=== PATIENT | female | born 1945 | race Caucasian/White ===

== ENCOUNTER → 2017-08-01 11:52 | Outpatient (CLI) | payer MEDICARE, MEDICAID, SELFPAY ==
--- NOTE | 2017-08-01 12:13 | RAD_ITS ---
STUDY: X-RAY - LUMBAR SPINE REASON FOR EXAM: Female, 71 years old. TECHNIQUE: 3 view(s) of the lumbar spine were obtained. COMPARISON: None FINDINGS: There is a 40 degree thoracic scoliosis with convexity to the right with a compensatory thoracolumbar scoliosis with convexity to the left.. There are degenerative changes involving the lower thoracic spine. The aorta and iliac vessels are heavily calcified in its roberts. 2. Bilateral infiltrates are seen projecting over the lower lumbosacral spine. RAD/Lumbar Spine 2 or 3 Views IMPRESSION: 840 degree thoracic scoliosis with convexity to the right with compensatory thoracolumbar scoliosis with convexity to the left. Mild multilevel intervertebral osteochondrosis. No fracture Electronically Signed: Tan Song, at 1:36 EST Tel , Service support ,
[2017-08-01 14:12] LABS: Amphetamine Urine VISTA NEGATIVE (<1000 ng/mL); Barbiturate Urine VISTA NEGATIVE (< 200 ng/mL); Benzodiazepine Urine VISTA NEGATIVE (< 200 ng/mL); Cocaine Urine VISTA NEGATIVE (< 300 ng/mL); Ecstacy Urine VISTA NEGATIVE (< 500 ng/mL); Methadone Urine VISTA NEGATIVE (< 300 ng/mL); PCP Urine VISTA NEGATIVE (< 25 ng/mL); THC Urine VISTA NEGATIVE (< 50 ng/mL); Vista UDS pH Range 5
== END ==
PROVIDERS: Family Provider Family Medicine; PCP Internal Medicine; Visit Provider Anesthesiology Pain Medicine
DX: F11.20 Opioid dependence, uncomplicated (principal)
CPT/HCPCS: 72100; 80307

== ENCOUNTER → 2017-08-10 10:52 | Outpatient (CLI) | payer MEDICARE, MEDICAID, SELFPAY ==
--- NOTE | 2017-08-10 11:02 | MRI_ITS ---
STUDY: MRI LUMBAR SPINE WITHOUT CONTRAST REASON FOR EXAM: Female, 71 years old. back pain, hx scoliosis. TECHNIQUE: Standardized fat and water weighted pulse sequences were obtained in the sagittal and axial planes. COMPARISON: None FINDINGS: T12-L1: There is moderate disc space narrowing and endplate spondylosis. There is mild disc bulge and facet neuropathy without significant central canal or foraminal stenosis. There is moderate levoscoliosis centered at L1/L2. There are lateral translations at L3/L4 and L4/L5. Normal conus medullaris that terminates at the L1 L1-2: There is severe disc space narrowing and endplate spondylosis asymmetric to the right. There is a mild disc infarct complex asymmetric to the right. There is facet arthropathy there is no significant central canal or foraminal stenosis. L2-3: There is severe disc space narrowing and endplate spondylosis asymmetric to the right. There is some moderate disc osteophyte complex asymmetric to the right with moderate right foraminal stenosis. There is no significant central canal or left foraminal stenosis. L3-4: There is moderate disc space narrowing and endplate spondylosis asymmetric to the right. There is mild disc osteophyte complex asymmetric to the right without significant central canal or foraminal stenosis. There is moderate facet arthropathy L4-5: There is mild disc space narrowing and endplate spondylosis. There is a minimal disc bulge without significant central canal or foraminal stenosis. There is facet arthropathy greater on the left. L5-S1: There is severe disc space narrowing and endplate spondylosis asymmetric to the left. There is a disc osteophyte complex asymmetric to the left with moderate left foraminal stenosis. There is no significant central canal or right foraminal stenosis. There is facet discopathy greater on the left. Normal visualized sacral ala. Normal visualized paraspinous soft tissue structures. MRI/Spine Lumbar (Routine) IMPRESSION: Moderate/severe Scoliosis and multilevel degenerative changes. L2/L3: Moderate right foraminal stenosis. L5/S1: Moderate left foraminal stenosis. Electronically Signed: Samer Salhab, MD at 9:41 EST Tel , Service support ,
== END ==
PROVIDERS: Family Provider Internal Medicine; PCP Internal Medicine; Visit Provider Anesthesiology Pain Medicine
DX: M48.07 Spinal stenosis, lumbosacral region (principal); M51.37 Other intervertebral disc degeneration, lumbosacral region
CPT/HCPCS: 72148

== ENCOUNTER → 2017-08-29 11:56 | Outpatient (CLI) | payer MEDICARE, MEDICAID, SELFPAY ==
--- NOTE | 2017-08-29 12:02 | RAD_ITS ---
STUDY: X-RAY - THORACIC SPINE REASON FOR EXAM: Female, 71 years old. Left flank and back pain TECHNIQUE: 3 view(s) of the thoracic spine were obtained. COMPARISON: None. FINDINGS: Normal kyphosis of the thoracic spine. There is a prominent rotatory scoliosis, dextroscoliosis in the lower lumbar spine, levoscoliosis in the lumbar spine. There is demineralization of the thoracic spine with endplate spondylosis. There is multilevel disc space narrowing of the thoracic spine. The soft tissue structures are unremarkable. RAD/Thoracic Spine 3 Views IMPRESSION: Multilevel degenerative changes with a prominent rotatory scoliosis. Electronically Signed: Andrés Isaac MD at 12:43 EDT , Service support ,
== END ==
PROVIDERS: Family Provider Internal Medicine; PCP Internal Medicine; Visit Provider Anesthesiology Pain Medicine
DX: M41.84 Other forms of scoliosis, thoracic region (principal); M47.894 Other spondylosis, thoracic region
CPT/HCPCS: 72072

== ENCOUNTER → 2017-11-05 10:35 | Outpatient (CLI) | payer MEDICARE, MEDICAID, SELFPAY ==
--- NOTE | 2017-11-05 10:41 | CT_ITS ---
STUDY: LOW DOSE CT LUNG CANCER SCREENING REASON FOR EXAM: Female, 71 years old. Tobacco use x 53 years. RADIATION DOSAGE (If Supplied By Facility): CTDIvol = ( 2.01 ) mGy, DLP = ( 65.95 ) mGycm TECHNIQUE: No contrast was administered. Low dose technique was utilized (average mAS-38 and kVp 120). 1.25 mm axial source images with a slice interval of 1.25-mm were reconstructed in lung windows. 2.5 mm axial source images with a slice interval of 2.5-mm were reconstructed in lung windows. 5.0 mm axial source images with a slice interval of 5.0-mm were reconstructed in soft tissue windows. Nodule measured using lung windows on PACS and/or independent workstation with automated measurement of minimum and maximum diameter. Nodule measurement reported as average diameter rounded to the nearest whole number. Growth is defined as an increase ins size of greater than 1.5 mm. COMPARISON: None. NODULES: Nodule: Laterally in the left lower lobe a pleural-based 1.8 x 1.1 cm ill-defined nodular density is seen with an elongated fibrotic atelectasis probably a scar tissue although scar neoplasm is not ruled out. No other worrisome lung nodule or mass identified. Emphysema: There is severe emphysema. Linear fibrotic ill-defined parenchymal opacities are seen in the left lower lobe with traction bronchiectasis and with stenting of the left hemidiaphragm. Anteriorly is pleural thickening with a 1.6 cm long scar tissue in the right upper lung lobe. Endobronchial lesion: Aorta: There is atherosclerotic calcification with tortuosity of the aorta. Ascending aorta is ectatic: 3.7 cm in diameter. Coronary arteries: Unremarkable. Heart: Normal in size. Pulmonary artery: Mildly prominent main pulmonary artery, suggestive of pulmonary hypertension. Mediastinal nodes: No significant lymphadenopathy demonstrated. Other chest and abdominal findings: There is calcification of the tracheal and bronchial roberts. There is an elevated left hemidiaphragm with superior extension of the left-sided abdominal viscera into the chest cavity. Increased thoracic kyphosis. Moderate degenerative spondylosis. Severe S-shaped thoracolumbar scoliosis with thoracic dextroscoliosis. CT/Low Dose CT Lung Screening IMPRESSION: Lung-RADS category 3 - Continue screening with LDCT in 6 months. Moderately severe pulmonary emphysema. Bronchiectasis. Linear fibrotic atelectasis and scarring as discussed. IMPORTANT NOTES FOR USE: ACR Lung-RADS Version 1.0 Assessment Categories Release Date: October 01, 2013 Category: Coded 0-4 bases on nodule(s) with highest degree of suspicion. Negative screen is defined as categories 1 and 2; a positive screen is defined as categories 3 and 4. Category 3 and 4A nodules that are unchanged on interval CT should be coded as category 2, and individuals returned to screening in 12 months. Category 4X: Category 3 or 4 nodules with additional imaging findings that increase the suspicion of lung cancer, such as spiculation, GGN that doubles in size in 1 year, enlarged lymph notes, etc. Category Modifiers: S (significant finding unrelated to lung cancer) and C (prior history of treated lung cancer) may be added to the 0-4 Lung-RADS Electronically Signed: Patricia Cortés MD at 10:26 EDT Tel , Service support ,
== END ==
PROVIDERS: Family Provider Internal Medicine; PCP Internal Medicine; Visit Provider Internal Medicine Critical Care Medicine
DX: Z12.2 Encounter for screening for malignant neoplasm of respiratory organs (principal); Z87.891 Personal history of nicotine dependence
CPT/HCPCS: G0297

== ENCOUNTER → 2017-11-11 08:55 | Outpatient (CLI) | payer MEDICARE, MEDICAID, SELFPAY ==
--- NOTE | 2017-11-11 08:55 | DT_ITS ---
This patient was seen during an EMR downtime November 07, 2017 - November 14, 2017. This patient may have a combination of paper and electronic documentation or all paper documentation. All documentation is viewable within the e-chart portion of [facility] for each patient visit.
[2017-11-11 12:12] VITALS: PULSE 104; PULSE 105; PULSE 106; PULSE 107; PULSE 95; PULSE 99; O2SAT 90; O2SAT 92; O2SAT 94; O2SAT 95
--- NOTE | 2017-11-14 12:05 | WT_ITS ---
PSN 6 Minute Walk Test - Interpretation Interpretation: The patient ambulated 826 feet over the course of 6 minutes beginning on room air without assistive devices or breaks. Pretesting oxygen saturation was noted to be 94% on room air. With ambulation, the vic oxygen saturation was 90%. There was evidence of both impaired walk distance and significant exertional oxygen desaturation. - Recommendations Recommendations: There is no indication for the use of supplemental oxygen at this time. However , close interval follow-up is recommended given the degree of oxygen desaturation noted during this study.
--- NOTE | 2017-11-14 12:15 | CPS ---
Testing done by Juana Brooks RRT.
== END ==
PROVIDERS: Family Provider Internal Medicine; PCP Internal Medicine; Visit Provider Internal Medicine Critical Care Medicine
DX: J44.9 Chronic obstructive pulmonary disease, unspecified (principal)
CPT/HCPCS: 94618

== ENCOUNTER → 2017-11-24 07:51 | Outpatient (CLI) | payer MEDICARE, MEDICAID, SELFPAY ==
--- NOTE | 2017-11-24 13:38 | PFT ---
INTRODUCTION: The patient is a 72-year-old female currently under the care of myself the presents for pulmonary function testing secondary to a diagnosis of COPD. Respiratory therapy reports good patient effort. Bronchodilators were used during testing. INTERPRETATION: Forced expiration spirometry demonstrates the presence of a very severe large airways obstructive ventilatory defect. There was a significant response to aerosolized bronchodilators noted, based upon change in FVC. Spirograms of good quality and do not plateau indicating slow emptying of the lungs. The respiratory flow volume loop reveals decreased expiratory flow rates at all lung volumes consistent with airways obstruction. Body plethysmography was performed and reveals an elevated TLC and RV, indicative of underlying hyperinflation and air-trapping. Diffusing capacity by single breath CO is severely reduced at 37% of predicted. IMPRESSION: These pulmonary function studies demonstrate the presence of a partially reversible very severe large airways obstructive ventilatory defect with associated hyperinflation, air trapping and reduction in diffusing capacity. There are no previous pulmonary function studies available for comparison.
== END ==
PROVIDERS: Family Provider Internal Medicine; PCP Internal Medicine; Visit Provider Internal Medicine Critical Care Medicine
DX: J44.9 Chronic obstructive pulmonary disease, unspecified (principal)
CPT/HCPCS: 94060; 94726; 94729

== ENCOUNTER → 2018-01-31 11:51 | Outpatient (CLI) | payer MEDICARE, MEDICAID, SELFPAY | PROVIDERS: Family Provider Internal Medicine; PCP Internal Medicine; Visit Provider Nurse Practitioner Family | DX: M47.892 Other spondylosis, cervical region (principal); M48.02 Spinal stenosis, cervical region | CPT/HCPCS: 72040 ==

== ENCOUNTER → 2018-02-22 13:02 | Outpatient (CLI) | payer MEDICARE, MEDICAID, SELFPAY ==
[2018-02-22 15:23] LABS: Amphetamine Urine VISTA NEGATIVE (<1000 ng/mL); Barbiturate Urine VISTA NEGATIVE (< 200 ng/mL); Benzodiazepine Urine VISTA NEGATIVE (< 200 ng/mL); Cocaine Urine VISTA NEGATIVE (< 300 ng/mL); Ecstacy Urine VISTA NEGATIVE (< 500 ng/mL); Methadone Urine VISTA NEGATIVE (< 300 ng/mL); PCP Urine VISTA NEGATIVE (< 25 ng/mL); THC Urine VISTA NEGATIVE (< 50 ng/mL); Vista UDS pH Range 7
== END ==
PROVIDERS: Family Provider Internal Medicine; PCP Internal Medicine; Visit Provider Anesthesiology Pain Medicine
DX: F11.20 Opioid dependence, uncomplicated (principal)
CPT/HCPCS: 80307

== ENCOUNTER → 2018-03-16 17:14 | Outpatient (CLI) | payer MEDICARE, MEDICAID, SELFPAY ==
--- NOTE | 2018-03-16 17:15 | CT_ITS ---
STUDY: CT CHEST WITHOUT CONTRAST REASON FOR EXAM: Female, 72 years old. Smoker, emphysema RADIATION DOSAGE (If Supplied By Facility): CTDIvol = ( 6.04 ) mGy, DLP = ( 219.01 ) mGycm TECHNIQUE: Transaxial imaging was performed without the administration of intravenous contrast material. Individualized dose optimization techniques were used for this CT. COMPARISON: None. FINDINGS: The lungs are hyperaerated with emphysematous changes. There is no demonstrated pleural abnormality. Normal heart and pericardium. Normal mediastinum. Normal hilar regions. Prominence of the pulmonary arteries. Pulmonary hypertension cannot be excluded. Calcified aorta arch and descending thoracic aorta. Borderline prominence of the ascending aorta and 3.9 cm. Mild degenerative vertebral changes. Moderate scoliosis. IVC filter is noted. 6 mm probable hepatic cyst. CT/Chest without Contrast IMPRESSION: Hyperaeration with emphysematous changes. Prominence of the pulmonary arteries. Pulmonary hypertension cannot be excluded. Moderate scoliosis. Borderline prominence of the ascending aorta. Electronically Signed: Mario Eric DO at 23:56 EDT Tel [phone], Service support ,
== END ==
PROVIDERS: Family Provider Internal Medicine; PCP Internal Medicine; Visit Provider Nurse Practitioner Acute Care
DX: R91.1 Solitary pulmonary nodule (principal)
CPT/HCPCS: 71250

== ENCOUNTER → 2018-07-18 14:38 | Outpatient (CLI) | payer MEDICARE, MEDICAID, SELFPAY ==
[2018-07-18 16:47] LABS: Amphetamine Urine VISTA NEGATIVE (<1000 ng/mL); Barbiturate Urine VISTA NEGATIVE (< 200 ng/mL); Benzodiazepine Urine VISTA NEGATIVE (< 200 ng/mL); Cocaine Urine VISTA NEGATIVE (< 300 ng/mL); Ecstacy Urine VISTA NEGATIVE (< 500 ng/mL); Methadone Urine VISTA NEGATIVE (< 300 ng/mL); PCP Urine VISTA NEGATIVE (< 25 ng/mL); THC Urine VISTA NEGATIVE (< 50 ng/mL); Vista UDS pH Range 5
== END ==
PROVIDERS: Family Provider Internal Medicine; PCP Internal Medicine; Referring Provider Anesthesiology Pain Medicine; Visit Provider Anesthesiology Pain Medicine
DX: F11.20 Opioid dependence, uncomplicated (principal)
CPT/HCPCS: 80307

== ENCOUNTER → 2018-12-13 12:21 | Outpatient (CLI) | payer MEDICARE, MEDICAID, SELFPAY ==
[2018-10-02 11:08] VITALS: BMI 18.1
--- NOTE | 2018-12-13 14:47 | PFTCOMP_ITS ---
COMPLETE PULMONARY FUNCTION TEST INTERPRETATION Brief HPI: Patient is a 73 year old female, currently under the care of Dr. Davalos, who presents to [facility] for complete pulmonary function tests secondary to diagnosis of COPD. Respiratory therapist reports good effort and reproducible results. Interpretation: Forced expiration spirometry shows a very severe large airways obstructive ventilatory defect with an FEV1 of 30% predicted. There is no significant bronchodilator response by strict ATS criteria. Spirograms are of good quality and plateau slowly, indicating slowly emptying areas of the lungs. The respiratory flow volume loop shows decreased expiratory flow rates at all lung volumes consistent with airway obstruction. Lung volumes by body plethysmography show an increased total lung capacity at 6.16 L, 146% predicted. FRC and RV are elevated out of proportion. Lung volume measurements are consistent with hyperinflation and air-trapping. Diffusion capacity by carbon monoxide is decreased at 43% predicted. The airway resistance is elevated. Compared to previous pulmonary function tests from 11/24/2017, there is been significant progression in air trapping. Impression: Irreversible very severe large airways obstructive ventilatory defect with a symmetric reduction diffusing capacity, resulting in air trapping with hyperinflation.
== END ==
PROVIDERS: Family Provider Internal Medicine; PCP Internal Medicine; Referring Provider Nurse Practitioner Acute Care; Visit Provider Nurse Practitioner Acute Care
DX: J44.9 Chronic obstructive pulmonary disease, unspecified (principal)
CPT/HCPCS: 94060; 94726; 94729

== ENCOUNTER → 2018-12-15 12:15 | Outpatient (CLI) | payer MEDICARE, MEDICAID, SELFPAY ==
[2018-10-02 11:08] VITALS: BMI 18.1
[2018-12-15 13:00] VITALS: PULSE 100; PULSE 116; PULSE 120; PULSE 125; PULSE 126; PULSE 130; PULSE 96; O2SAT 88; O2SAT 89; O2SAT 93; O2SAT 94; O2SAT 96; O2SAT 97; O2SAT 98
--- NOTE | 2018-12-15 13:04 | CPS ---
Patient face to face with Dr. Stringer for oxygen. Patient set up with home O2 with [employer].
--- NOTE | 2018-12-16 08:20 | PCM.PSN.6M ---
PSN 6 Minute Walk Test - 6 Minute Walk Test 6 Minute Walk Test: 6 Minute Walk Test PSN:6-Minute Walk Test Start: 12/15/18 12:56 Freq: Status: Active Protocol: [id number].6MINW Document 12/15/18 12:56 SMB (Rec: 12/15/18 12:56 SMB [id number]) 6 Minute Walk Test Full Laps Walked 11 Partial Lap, Number of Tiles Walked 6 Total Distance Walked (ft) 655 Document 12/15/18 13:00 SMB (Rec: 12/15/18 13:04 B [id number]) 6 Minute Walk Test Date Performed 12/15/18 Time Performed 12:39 Height 5 ft 1 in Weight: 43.998 kg Weight in Pounds 97.[address]: Tiffanie Calabrese Assistive device used: None Pre-test Oxygen Delivery Method Room Air Pulse Ox (%) 93 Pulse Rate (60-100 beats/min) 96 Dyspnea Robert Scale (0-10) 1 Exertion Robert Scale (6-20) 11 1st minute Oxygen Delivery Method Room Air Pulse Ox (%) 94 Pulse Rate (60-100 beats/min) 116 H 2nd minute Oxygen Delivery Method Room Air Pulse Ox (%) 89 Pulse Rate (60-100 beats/min) 125 H 3rd minute Oxygen Flow Rate (L/min) (L/min) 2 Oxygen Delivery Method Nasal Cannula Pulse Ox (%) 88 Pulse Rate (60-100 beats/min) 125 H 4th minute Oxygen Flow Rate (L/min) (L/min) 2 Oxygen Delivery Method Nasal Cannula Pulse Ox (%) 97 Pulse Rate (60-100 beats/min) 120 H 5th minute Oxygen Flow Rate (L/min) (L/min) 2 Oxygen Delivery Method Nasal Cannula Pulse Ox (%) 96 Pulse Rate (60-100 beats/min) 126 H 6th minute Oxygen Flow Rate (L/min) (L/min) 2 Oxygen Delivery Method Nasal Cannula Pulse Ox (%) 96 Pulse Rate (60-100 beats/min) 130 H Post-test Oxygen Flow Rate (L/min) (L/min) 2 Oxygen Delivery Method Nasal Cannula Pulse Ox (%) 98 Pulse Rate (60-100 beats/min) 100 Dyspnea Robert Scale (0-10) 4 Exertion Robert Scale (6-20) 13 Full Laps Walked 11 Partial Lap, Number of Tiles Walked 6 Total Distance Walked (ft) 655 12/15/18 13:04 Cardiopulmonary Services by Diana Keyes Patient face to face with Dr. Stringer for oxygen. Patient set up with home O2 with [employer]. Initialized on 12/15/18 13:04 - END OF NOTE - Interpretation Interpretation: The patient was noted to be 93% on room air. In the third minute of walking, patient did desaturate to 88%. The patient was placed on 2 L nasal cannula and was able to complete 6 minutes of walking. Patient did have tachycardia as high as 130 bpm. In total, patient traveled only 655 feet. These findings are consistent with a mixed limitation to exercise tolerance. - Recommendations Recommendations: Patient should require no supplemental oxygen at rest, but 2 L nasal cannula with any exertion.
== END ==
PROVIDERS: Family Provider Internal Medicine; PCP Internal Medicine; Referring Provider Nurse Practitioner Acute Care; Visit Provider Nurse Practitioner Acute Care
DX: J44.9 Chronic obstructive pulmonary disease, unspecified (principal)
CPT/HCPCS: 94618

== ENCOUNTER → 2019-04-18 12:45 | Outpatient (CLI) | payer MEDICARE, MEDICAID, SELFPAY ==
[2019-03-08 08:05] VITALS: BMI 18.5
[2019-04-18 14:16] LABS: Amphetamine Urine VISTA NEGATIVE (<1000 ng/mL); Barbiturate Urine VISTA NEGATIVE (< 200 ng/mL); Benzodiazepine Urine VISTA NEGATIVE (< 200 ng/mL); Cocaine Urine VISTA NEGATIVE (< 300 ng/mL); Ecstacy Urine VISTA NEGATIVE (< 500 ng/mL); Methadone Urine VISTA NEGATIVE (< 300 ng/mL); PCP Urine VISTA NEGATIVE (< 25 ng/mL); THC Urine VISTA NEGATIVE (< 50 ng/mL); Vista UDS pH Range 5
== END ==
PROVIDERS: Family Provider Internal Medicine; PCP Internal Medicine; Referring Provider Anesthesiology Pain Medicine; Visit Provider Anesthesiology Pain Medicine
DX: F11.20 Opioid dependence, uncomplicated (principal)
CPT/HCPCS: 80307

== ENCOUNTER 2019-05-16 15:56 | Inpatient (IN) | payer MEDICARE, MEDICAID, SELFPAY ==
[2019-03-08 08:05] VITALS: BMI 18.5
[2019-05-16] VITALS (10 sets, daily range): BP systolic 124–142; BP diastolic 72–106; PULSE 87–111; RESP 13–19; TEMP 36.6–37.1; O2SAT 96–100; BMI 18.3; BMI 18.5
--- NOTE | 2019-05-16 16:04 | EKG12_ITS ---
Test Reason : SOB Blood Pressure : / mmHG Vent. Rate : 095 BPM Atrial Rate : 095 BPM P-R Int : 154 ms QRS Dur : 070 ms QT Int : 330 ms P-R-T Axes : 076 -32 064 degrees QTc Int : 414 ms Normal sinus rhythm Left axis deviation Abnormal ECG Confirmed by MEHDI MAYEN, CARLOS ([id number]), offline editor JOLANTA BONILLA ([id number]) on 05/23/2019 11:32:36 AM Referred By: Terese Huang Confirmed By:JANE HARDING MD
--- NOTE | 2019-05-16 16:05 | ED.DCSUM_ITS ---
History of Present Illness Chief Complaint: Shortness of Breath Informant: Patient Onset: Weeks Context: Gradual Onset Timing: Continuous Current Severity: Moderate Maximum Severity: Moderate Narrative: The patient is a 73-year-old female with history of COPD who is on 2 L of oxygen presents to the emergency department with cough and shortness of breath. Patient states that over the past 2 weeks, she has had gradually worsening dyspnea. She states that she is had to turn her oxygen up to 3 L. She states if she exerts herself, she gets very winded. She has had right-sided chest pain that is worse with coughing. She denies any fevers but does admit to chills and sweats. She states that she was treated with steroids and antibiotics in March and seemed to get better for short period of time, but then her symptoms returned. Prior similar symptoms: Yes Recent Illness/Hospitalization: No Past Medical History - Allergies and Home Meds Allergies/Adverse Reactions: Allergies No Known Allergies Allergy (Verified 05/16/19 15:57) Primary Care Physician: Mary Flannery MD [Primary Care Provider] - Prior records reviewed: Yes Past Medical History: - - COPD with chronic hypoxia Surgical History: noncontributory Smoking Status: Former smoker Review of Systems General: Denies: Chills, Fever, Sweats Eyes: Denies: Visual changes - bilaterally, Diplopia ENT: Denies: Rhinorrhea, Sore throat Cardiovascular: Denies: Chest pain, Palpitations Respiratory: Reports: Dyspnea, Cough, Dyspnea on exertion Gastrointestinal: Denies: Abdominal pain, Nausea, Vomiting, Diarrhea, Melena, Hematochezia Genitourinary: Denies: Dysuria, Hematuria, Frequency Musculoskeletal: Denies: Back pain, Extremity Pain Skin: Denies: Rash, Wounds Neurological: Denies: Headache, Weakness, Numbness Physical Exam Vital Signs/Narrative: Vital Signs Temp Pulse Resp BP Pulse Ox 05/16/19 15:57 98.5 F 99 18 142/106 H 96 Inital Vital Signs reviewed: Yes General: Well nourished, Well developed, No Acute Distress Head: Normocephalic, Atraumatic Eyes: Perrl, EOMI ENT: Moist mucous membranes, No rhinorrhea Neck: Supple, Nontender Cardiovascular: Regular rate, Regular rhythm, No murmurs Respiratory: No distress, Chest nontender, Wheezing, Decreased Air Movement Abdomen: Soft, Nontender, Nondistended, Normal bowel sounds Back: Nontender, Normal Inspection Extremities: Nontender, No edema Skin: Normal color, No rash Neurological: Alert, Oriented x3, Cranial nerves II-XII grossly intact, Normal Strength, Normal Sensation Psychological: Normal affect, Normal Mood Diagnostic/Tx/Re-eval Clinical Impression(s) from Imaging Studies Chest X-Ray 05/16/19 16:05 IMPRESSION: Normal x-ray examination of the chest. Electronically Signed: Mook Britt MD at 16:26 EST Tel , Service support , Chest CTA 05/16/19 16:25 IMPRESSION: Chronic eccentric nonocclusive thromboembolic material is present in right lower lobe arterial branches. No acute, occlusive pulmonary embolus is identified. Electronically Signed: Rosendo Leon MD at 18:01 EST Tel , Service support , Abnormal Lab Results 05/16/19 05/16/19 05/16/19 16:20 16:20 16:20 WBC 12.1 H RBC 4.65 Hgb 14.4 Hct 44.1 MCV 94.8 MCH 31.0 MCHC 32.7 RDW Std Deviation 50.4 H RDW Coeff of Bing 14.6 Plt Count 431 MPV 9.7 Immature Gran % (Auto) 0.400 Neut % (Auto) 67.9 Lymph % (Auto) 22.1 [place] % (Auto) 7.7 Eos % (Auto) 0.8 Baso % (Auto) 1.1 H Absolute Neuts (auto) 8.2 H Absolute Lymphs (auto) 2.67 Nucleated RBC % 0 Sodium 142 Potassium 3.4 L Chloride 106 Carbon Dioxide 31.0 Anion Gap 5 BUN 8 Creatinine 0.59 Estim Creat Clear Calc 35.84 Est GFR (MDRD) Af Amer 128 Est GFR (MDRD) Non-Af 106 BUN/Creatinine Ratio 13.5 Glucose 85 Lactic Acid Cancelled Calcium 10.6 H Troponin I < 0.015 B-Natriuretic Peptide 05/16/19 05/16/19 16:20 18:15 WBC RBC Hgb Hct MCV MCH MCHC RDW Std Deviation RDW Coeff of Bing Plt Count MPV Immature Gran % (Auto) Neut % (Auto) Lymph % (Auto) [place] % (Auto) Eos % (Auto) Baso % (Auto) Absolute Neuts (auto) Absolute Lymphs (auto) Nucleated RBC % Sodium Potassium Chloride Carbon Dioxide Anion Gap BUN Creatinine Estim Creat Clear Calc Est GFR (MDRD) Af Amer Est GFR (MDRD) Non-Af BUN/Creatinine Ratio Glucose Lactic Acid 1.3 Calcium Troponin I B-Natriuretic Peptide 37.4 - Medical Decision Making The patient presents to the emergency department with dyspnea and right-sided chest pain. EKG was obtained. There was no acute ischemic change. Chest x-ray was also unremarkable for acute infiltrative process. Patient was given nebulized breathing treatments and steroids. She did have some improvement of aeration, but persistent bronchospasm. The patient underwent CTA of her chest which demonstrates nonocclusive thrombus in the right lower lobe corresponding to area of pain. I did discuss this with Dr. Stringer, pulmonology on-call for Dr. Davalos. He did agree with plan for anticoagulation. The patient was ambulated and had exertional tachypnea and hypoxia. At this point, I do feel that she is going to require admission. She was covered with doxycycline. She was discussed with the hospitalist and will be admitted. Impression 1. Right lower lobe pulmonary emboli 2. COPD exacerbation ED Disposition - Plan for ED Patient: Referrals: Mary Flannery MD [Primary Care Provider] -
--- NOTE | 2019-05-16 16:05 | RAD_ITS ---
STUDY: X-RAY CHEST REASON FOR EXAM: Female, 73 years old. Shortness of breath TECHNIQUE: Single AP portable view of the chest. COMPARISON: 01/10/2016 FINDINGS: The lungs are clear and expanded. There is no demonstrated pleural abnormality. Normal size heart. Normal mediastinum and tuan. Normal visualized pulmonary arteries. Normal visualized aortic arch and descending thoracic aorta. There is a dextroscoliosis of the thoracic spine. Normal visualized ribs, clavicles, and shoulders. There is no demonstrated abnormality of the visualized soft tissue structures of the upper abdomen. RAD/Chest 1 View (Portable) IMPRESSION: Normal x-ray examination of the chest. Electronically Signed: Mook Britt MD at 16:26 EST Tel , Service support ,
--- NOTE | 2019-05-16 16:09 | NURSING ---
NO OLD EKGS
[2019-05-16] MEDS: Ipratropium/Albuterol Sulfate 3 ML AMPUL.NEB INHALATION (16:18)
[2019-05-16] MEDS: MethylPREDNISolone 125 MG/2 ML Vial IV (16:19)
[2019-05-16] MEDS: 0.9% Normal Saline 1,000 ML 150 ML IV (16:19)
--- NOTE | 2019-05-16 16:25 | CT_ITS ---
STUDY: CTA CHEST REASON FOR EXAM: Female, 73 years old. Shortness of breath RADIATION DOSAGE (If Supplied By Facility): CTDIvol = ( 2.52 ) mGy, DLP = ( 123.06 ) mGycm TECHNIQUE: The examination was performed with the intravenous administration of 100ML ISOVUE 370. Post-processing of the angiographic images was performed, with multiplanar reformation and 3D reconstruction. Individualized dose optimization techniques were used for this CT. COMPARISON: 03/16/2018 FINDINGS: Chronic eccentric nonocclusive thromboembolic material is present in right lower lobe arterial branches. Normal thoracic aorta and visualized great vessels. There is no demonstrated aortic dissection. Normal heart and pericardium. Normal mediastinum. Normal hilar regions. Normal visualized trachea and bronchi. Pulmonary emphysema. Normal pleura. Normal chest wall structures. Thoracolumbar scoliosis. IVC filter. CT/CTA Chest W/WO Contrast IMPRESSION: Chronic eccentric nonocclusive thromboembolic material is present in right lower lobe arterial branches. No acute, occlusive pulmonary embolus is identified. Electronically Signed: Rosendo Leon MD at 18:01 EST Tel , Service support ,
[2019-05-16] MEDS: Albuterol 2.5 MG/3 ML VIAL.NEB. INHALATION ×2 (16:31→17:00)
[2019-05-16 16:33] LABS: Absolute Lymphocyte Count 2.67 X10^3/uL (0.83-4.51); Absolute Neutrophil Count 8.2 X10^3/uL (2.0-7.7); Basophil# 0.13 X10^3/uL; Basophil% 1.1 % (0-1); Eosinophils% 0.8 % (0-5); Hematocrit 44.1 % (37-47); Hemoglobin 14.4 g/dL (12.0-15.0); Lymphocyte # 2.67 X10^3/ul (4.0); Lymphocyte % 22.1 % (19-41); Mean Corp Hgb Conc 32.7 g/dL (32-36); Mean Corpuscular Volume 94.8 fL (81-99); Mean Platelet Vol. 9.7 fl (6.2-12.0); Monocyte# 0.93 X10^3/uL; Monocyte% 7.7 % (0-10); NRBC Flagged by Analyzer 0 % (0-5); Neutrophil % 67.9 % (47-70); Platelet Count 431 K/mm3 (150-450); RBC Distribution Width CV 14.6 % (11.6-14.6); RBC Distribution Width SD 50.4 fl (35.1-43.9); Red Blood Count 4.65 M/mm3 (4.2-5.4); White Blood Count 12.1 K/mm3 (4.4-11.0)
[2019-05-16 17:27] LABS: Anion Gap 5 (5-15); BUN 8 mg/dL (7-18); BUN/Creat Ratio 13.5 RATIO (10-20); Calcium,Total 10.6 mg/dL (8.5-10.1); Chloride 106 mmol/L (98-107); Creatinine, Serum 0.59 mg/dL (0.55-1.02); EST Glomerular Filtration Rate 106 mL/min (>60); Est Glom Filt Rate - Afr Amer 128 mL/min (>60); Estimated Creatinine Clearance 35.84 ml/min; Glucose 85 mg/dL (74-106); Potassium 3.4 mmol/L (3.5-5.1); Sodium Level 142 mmol/L (136-145)
[2019-05-16 17:37] LABS: BNP,B-Type NATRIURETIC PEPTIDE 37.4 pg/mL (0-100)
[2019-05-16] MEDS: oxyCODONE 5 MG Tablet PO (17:53)
[2019-05-16 18:46] LABS: Lactic Acid 1.3 mmol/L (0.4-1.9)
--- NOTE | 2019-05-16 18:47 | HP.PCM_ITS ---
Problem List (1) Acute pulmonary embolism Status: Acute Qualifiers: Pulmonary embolism type: unspecified Acute cor pulmonale presence: unspecified Qualified Code(s): I26.99 - Other pulmonary embolism without acute cor pulmonale (2) Stage 4 very severe COPD by GOLD classification Status: Chronic Comment: FEV1 30% of predicted (3) Malnutrition Status: Acute (4) Chronic back pain Status: Chronic Qualifiers: Back pain location: low back pain Back pain laterality: unspecified Sciatica laterality: sciatica laterality unspecified (5) Arthritis Status: Chronic History of Present Illness Date of Admission: 05/16/19 Chief Complaint: Progressive SOB - ongoing for 2 weeks The patient is a 73 year old F with PMHx of stage 4 COPD, on 2L home oxygen, h/o DVT s/p 2 IVC in 1995, who comes in with progressive SOB. Patient has dyspnea on exertion requiring her to increase her oxygen to 3L. She denied any recent travel. She admits to not moving around lately and being lazy after the of her spouse. She denied any sick contacts. She had associated right sided chest pain, worse with deep breath. Denied dizziness or palpitations or nausea. She has not been eating well. Vitals in ED showed temp 98.5F, HR 99, BP 142/106, RR 18, Spo2 96% on 3L oxygen. Her admitting blood work showed WBC of 12.1, Hb 14.4, Plt 431. Her BMP was unremarkable except for potassium of 3.4. Her admitting CXR was unremarkable. Her CTA chest showed chronic eccentric non- occlusive PE in right lobe arterial branches. No acute PE seen. Past Medical History Past Medical History (Chronic Problems): Chronic Problems (Last Reviewed 03/08/19 @ 12:56 by Tiffanie Calabrese NP-Ruma) Asthma (Chronic) Stage 4 very severe COPD by GOLD classification (Chronic) FEV1 30% of predicted COPD (chronic obstructive pulmonary disease) (Chronic) Chronic back pain (Chronic) Scoliosis (Chronic) Arthritis (Chronic) Medical History: Medical History (Last Reviewed 03/08/19 @ 12:56 by Tiffanie Calabrese NP-Ruma) History of blood clots (Acute) Z86.718 COPD (chronic obstructive pulmonary disease) (Chronic) J44.9 Chronic back pain (Chronic) M54.9, G89.29 Scoliosis (Chronic) M41.9 Arthritis (Chronic) M19.90 Bronchitis J40 Allergies No Known Allergies Allergy (Verified 05/16/19 15:57) Home Medications: Ambulatory Orders Medication Instructions Recorded oxycodone ER 13.5 mg capsule 13.5 mg PO BID 01/10/19 sprinkle extend release 12hr(DON'T CRUSH) budesonide-formoterol HFA 160 2 puff INHALATION BID #1 device 03/08/19 mcg-4.5 mcg/actuation aerosol inhaler Albuterol Sulfate [Ventolin Hfa] 2 puff INHALATION Q6H PRN PRN 05/16/19 Fluticasone Propionate 2 spray INTRANASAL DAILY 05/16/19 Tiotropium [place] [Spiriva 2 puff INHALATION DAILY 05/16/19 Respimat] Surgical History: Surgical History (Last Reviewed 03/08/19 @ 12:56 by ARA Collins) H/O breast biopsy Z98.890 1972 S/P IVC filter Z95.828 x2 1995 cystectomy right breast, non cancerous 1966 Surgical History: - - s/p right breast biopsy, s/p IVC filter Psychiatric History: No pertinent psych hx 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 Denies: Chills, Fever, Weight Change Eyes: Denies: Blurred vision, Cataracts, Drainage, Eyelid Inflammation HEENT: Denies: Difficulty Hearing, Head Aches, Hearing Changes, Sinus Congestion, Sinus Drainage Cardiovascular: Reports: Chest Pain. Denies: Claudication, Heaviness, Light Headedness, Palpitations Respiratory: Reports: Cough, Shortness of Breath, Shortness of breath at rest, Shortness of breath upon exertion. Denies: Hemoptysis, Sputum production Gastrointestinal: Denies: Abdominal Pain, Constipation, Hematemesis, Hematochezia, Nausea, Vomiting Genitourinary: Reports: Frequency, Incontinence. Denies: Dysuria Musculoskeletal: Denies: Joint Pain, Joint stiffness, Joint swelling, Joint Tenderness Skin: Denies: Rash, Wounds Neurological: Denies: Numbness, Tingling, Focal weakness Psychiatric: Denies: Anxiety, Depression, Homicidal Ideations, Suicidal Ideations Hematologic/ Lymphatic: Denies: Easy Bruising, Easy Bleeding VTE Information - Inpt Only VTE Present on Admission: Yes VTE Pharm Prophylaxis ordered?: Yes Patient Problems: Active and Suspected Problems (Last Reviewed 03/08/19 @ 12:56 by Tiffanie Calabrese NP-C) Acute pulmonary embolism (Acute) Malnutrition (Acute) - Physical Exam Vitals/I&O's: Vital Signs Temp Pulse Resp BP Pulse Ox 98 F 90 19 H 128/74 H 99 05/16/19 18:00 05/16/19 18:00 05/16/19 18:00 05/16/19 18:00 05/16/19 18:00 Oxygen Flow Rate (L/min) 3 Oxygen Delivery Method Nasal Cannula Weight: 43.998 kg Body Mass Index (BMI) 18.3 General: Alert, Oriented x3, Cooperative, No apparent distress, - - on 3L oxygen, cachetic HEENT: Atraumatic, PERRLA, EOMI, Normocephalic Oral: Moist Mucosa Neck: Supple Lungs: Clear to auscultation, Normal air movement Cardiovascular: Regular rate, Regular Rhythm, Normal S1, Normal S2, No murmurs, Tachycardic Abdomen: Bowel Sounds Present, Soft, Non Tender, Non-Distended, No Hepato-splenomegaly Extremities: No edema Skin: No rashes, Incision Musculoskeletal: No Tenderness to Palpation of Joints or Extremities Lymphatic: No Cervical, Supraclavicular, or Inguinal Adenopathy Neurological: Cranial nerves II-XII grossly intact, Neuro grossly intact Psych/Mental Status: Normal Affect, Appropriate Laboratory Results 05/16/19 16:20: WBC 12.1 H, RBC 4.65, Hgb 14.4, Hct 44.1, MCV 94.8, MCH 31.0, MCHC 32.7, RDW Std Deviation 50.4 H, RDW Coeff of Bing 14.6, Plt Count 431, MPV 9.7, Immature Gran % (Auto) 0.400, Neut % (Auto) 67.9, Lymph % (Auto) 22.1, [place] % (Auto) 7.7, Eos % (Auto) 0.8, Baso % (Auto) 1.1 H, Absolute Neuts (auto) 8.2 H , Absolute Lymphs (auto) 2.67, Nucleated RBC % 0 05/16/19 16:20: Sodium 142, Potassium 3.4 L, Chloride 106, Carbon Dioxide 31.0, Anion Gap 5, BUN 8, Creatinine 0.59, Estim Creat Clear Calc 35.84, Est GFR (MDRD) Af Amer 128, Est GFR (MDRD) Non-Af 106, BUN/Creatinine Ratio 13.5, Glucose 85, Calcium 10.6 H, Troponin I < 0.015 05/16/19 16:20: Lactic Acid Cancelled 05/16/19 16:20: B-Natriuretic Peptide 37.4 05/16/19 18:15: Lactic Acid 1.3 Current Medications Sodium Chloride () 1,000 mls @ 150 mls/hr IV .Q6H40M ONE Stop: 05/16/19 22:43 Last Admin: 05/16/19 16:19 Dose: 150 mls/hr Documented by: Doxycycline Hyclate 100 mg/ (Dextrose) 260 mls @ 250 mls/hr IV X1 ONE Stop: 05/16/19 19:26 Assessment/Plan All Active Problems (Last Reviewed 03/08/19 @ 12:56 by Tiffanie Calabrese, ENROLLMENT ADVISOR-C) Acute pulmonary embolism (Acute) Malnutrition (Acute) PND (post-nasal drip) (Acute) Thrush, oral (Acute) Lung nodule (Acute) History of blood clots (Acute) 73 year old F with PMHx of stage 4 COPD, on 2L home oxygen, h/o DVT s/p 2 IVC in 1995, who comes in with progressive SOB. 1. Acute on chronic respiratory failure secondary to probable Acute COPD exacerbation and chronic PE on poor functional pulmonary reserve pt Patient is on 2L oxygen at home. On 3 L oxygen. Very dyspneic with least movement CTA chest showed chronic right lower lobe PE H/o DVT right leg, s/p IVC filter x 2( still present) Started on Solumedrol and Lovenox Will continue on Lovenox, doppler ultrasound of legs, pulmonology consult Continue Solumedrol for now although lung sounds are distant; no wheezes heard. May discontinue steroids if remains improved Encourage use of incentive spirometer, breathing treatments, wean off to home O2 level if improved Case management consult for help with oral anticoagulants prescription cost if needed 2. Hypokalemia, replaced 3. Severe malnutrition, BMI 18.5, nutrition consult, started on Ensure 4. Scoliosis/arthritis, all remain stable 5. DVT PPx- On therapeutic Lovenox 6. Code status - DNR-CCA. She has no power of attorney at law. Social work to assist with education and documentation Patient qualifies for palliative care based on her co-morbidities. Code Visit Inpatient E&M: 26821 Init Hosp L3
[2019-05-16] MEDS: Enoxaparin 40 MG/0.4 ML Syringe SC (19:05)
--- NOTE | 2019-05-16 19:48 | VDLE_ITS ---
Reason For Study: Pulmonary embolism RIGHT LEFT GSV is normal. GSV is normal. CFV is compressible, spontaneous, phasic, CFV is compressible, spontaneous, phasic, competent and demonstrates normal competent, and demonstrates normal augmentation. augmentation. FV is compressible, spontaneous, phasic, FV is compressible, spontaneous, phasic, competent and demonstrates normal competent and demonstrates normal augmentation. augmentation. POP V is compressible, spontaneous, phasic, POP V is compressible, spontaneous, phasic, competent and demonstrates normal competent and demonstrates normal augmentation. augmentation. T/P Trunk is compressible. T/P Trunk is compressible. PTV is compressible. PTV is compressible. RT PerV is compressible. LT PerV is compressible. Procedure Exam performed portable in patient room. A preliminary report was called and/or faxed to Dr. Stringer and [facility]. Interpretation Summary No evidence for acute deep venous thrombosis bilateral lower extremities with patent and compressible bilateral great saphenous veins. Ordering Physician: Terese Huang Referring Physician: Mary Flannery Performed By: Diana Mohan RVT
[2019-05-16] MEDS: oxyCODONE CR 15 MG Tablet PO (22:26)
[2019-05-17] VITALS (13 sets, daily range): BP systolic 119–125; BP diastolic 63–75; PULSE 60–108; RESP 18–20; TEMP 36.7–37.1; O2SAT 95–98
--- NOTE | 2019-05-17 02:30 | NURSING ---
PT WAS RESTING IN BED W/RESPRS @ 18 AND NO C/O RESPIRATORY ISSUES. ASSISTED PT TO BR AND RESPRS QUICKLY INCREASED TO 24 AND PT REPORTED HER CHEST FEELING HEAVY. PT RETURNED TO BED, RESPRS RETURNED TO BASELINE WITHIN TWO MINS.
[2019-05-17] MEDS: 0.9% Saline Lock 10 ML Syringe IV ×2 (06:20→14:15)
[2019-05-17 06:21] LABS: Absolute Lymphocyte Count 0.93 X10^3/uL (0.83-4.51); Absolute Neutrophil Count 6.6 X10^3/uL (2.0-7.7); Basophil# 0.01 X10^3/uL; Basophil% 0.1 % (0-1); Hematocrit 37.1 % (37-47); Hemoglobin 11.8 g/dL (12.0-15.0); Lymphocyte # 0.93 X10^3/ul (4.0); Lymphocyte % 12.1 % (19-41); Mean Corp Hgb Conc 31.8 g/dL (32-36); Mean Corpuscular Hgb 30.4 pg (27.0-32.0); Mean Corpuscular Volume 95.6 fL (81-99); Mean Platelet Vol. 9.5 fl (6.2-12.0); Monocyte# 0.08 X10^3/uL; NRBC Flagged by Analyzer 0 % (0-5); Neutrophil # 6.57 X10^3/uL (2.7-7.7); Neutrophil % 85.6 % (47-70); Platelet Count 355 K/mm3 (150-450); RBC Distribution Width CV 14.6 % (11.6-14.6); Red Blood Count 3.88 M/mm3 (4.2-5.4); White Blood Count 7.7 K/mm3 (4.4-11.0)
[2019-05-17 06:49] LABS: Albumin, Serum 2.9 g/dL (3.2-5.0); BUN 8 mg/dL (7-18); BUN/Creat Ratio 15.3 RATIO (10-20); Calcium,Total 8.9 mg/dL (8.5-10.1); Chloride 112 mmol/L (98-107); Creatinine, Serum 0.52 mg/dL (0.55-1.02); EST Glomerular Filtration Rate 122 mL/min (>60); Est Glom Filt Rate - Afr Amer 148 mL/min (>60); Estimated Creatinine Clearance 35.35 ml/min; Glucose 107 mg/dL (74-106); Phosphorus 3.6 mg/dL (2.5-4.9); Potassium 4.5 mmol/L (3.5-5.1); Sodium Level 144 mmol/L (136-145)
[2019-05-17] MEDS: Ipratropium/Albuterol Sulfate 3 ML AMPUL.NEB INHALATION ×4 (07:09→19:19)
[2019-05-17] MEDS: oxyCODONE CR 15 MG Tablet PO ×2 (09:15→21:02)
[2019-05-17] MEDS: Fluticasone 0.05% 1 SPRAY NASAL.SRY 2 SPRAY NASAL (09:16)
--- NOTE | 2019-05-17 09:45 | CON.PCM_ITS ---
Problem List (1) Acute pulmonary embolism Status: Acute Qualifiers: Pulmonary embolism type: unspecified Acute cor pulmonale presence: unspecified Qualified Code(s): I26.99 - Other pulmonary embolism without acute cor pulmonale (2) Malnutrition Status: Acute (3) Thrush, oral Status: Acute (4) Asthma Status: Chronic Qualifiers: Asthma severity: moderate Asthma persistence: persistent Asthma complication type: uncomplicated Qualified Code(s): J45.40 - Moderate persistent asthma, uncomplicated (5) Stage 4 very severe COPD by GOLD classification Status: Chronic Comment: FEV1 30% of predicted (6) Lung nodule Status: Acute (7) History of blood clots Status: Acute (8) Chronic back pain Status: Chronic Qualifiers: Back pain location: low back pain Back pain laterality: unspecified Sciatica laterality: sciatica laterality unspecified (9) Scoliosis Status: Chronic (10) Arthritis Status: Chronic Reason for Consult Date of Consultation: 05/17/19 Reason for Consultation: Pulmonary embolism History of Present Illness: The patient is a 73 year old F, with past medical history listed below and known to our office, who presented to [facility] on 05/16/2019 secondary to progressive shortness of breath. Patient reportedly uses 2 L nasal cannula with any exertion, but had increased to 3 L nasal cannula secondary to exertional dyspnea. Patient had reported right-sided chest pain that was worse with coughing, but no fevers were reported. Patient recently was on a steroid burst and antibiotics in March and felt that she improved, but not back to baseline. In the ER, an EKG was obtained showing no ST elevations. Chest x-ray was unremarkable and patient was given nebulized breathing solutions and steroids. Patient persisted and wheezing, so a CTA of the chest was obtained showing nonocclusive thrombus in the right lower lobe. Patient was anticoagulated and admitted to the hospital for COPD exacerbation. Patient was given doxycycline. Patient reports that she has had a waxing and waning course since March. Patient states that she feels her Spiriva is not working as well and was wondering about nebulized options. Patient does state that she tends to travel or be away from home intermittently, but has been compliant with her baseline inhaler therapy. Patient does have a previous history of clots, but has been off anticoagulation for some time. Patient denies any frequent falls or bleeding issues in the past such as epistaxis, hemoptysis, melena or hematochezia. Patient denies any high risk recreational activities such as woodworking. Review of systems otherwise negative from a constitutional, HEENT, respiratory, cardiovascular, GI, genitourinary, musculoskeletal, skin, neurologic, psyc hiatric and hematologic system unless stated above. Past Medical History Past Medical History (Chronic Problems): Chronic Problems (Last Reviewed 03/08/19 @ 12:56 by Tiffanie Calabrese NP-C) Asthma (Chronic) Stage 4 very severe COPD by GOLD classification (Chronic) FEV1 30% of predicted COPD (chronic obstructive pulmonary disease) (Chronic) Chronic back pain (Chronic) Scoliosis (Chronic) Arthritis (Chronic) Medical History: Medical History (Last Reviewed 03/08/19 @ 12:56 by Tiffanie Calabrese NP-C) History of blood clots (Acute) Z86.718 COPD (chronic obstructive pulmonary disease) (Chronic) J44.9 Chronic back pain (Chronic) M54.9, G89.29 Scoliosis (Chronic) M41.9 Arthritis (Chronic) M19.90 Bronchitis J40 Allergies No Known Allergies Allergy (Verified 05/16/19 15:57) Home Medications: Ambulatory Orders Medication Instructions Recorded oxycodone ER 13.5 mg capsule 13.5 mg PO BID 01/10/19 sprinkle extend release 12hr(DON'T CRUSH) budesonide-formoterol HFA 160 2 puff INHALATION BID #1 device 03/08/19 mcg-4.5 mcg/actuation aerosol inhaler Albuterol Sulfate [Ventolin Hfa] 2 puff INHALATION Q6H PRN PRN 05/16/19 Fluticasone Propionate 2 spray INTRANASAL DAILY 05/16/19 Tiotropium [place] [Spiriva 2 puff INHALATION DAILY 05/16/19 Respimat] Surgical History: Surgical History (Last Reviewed 03/08/19 @ 12:56 by Tiffanie Calabrese NP-C) H/O breast biopsy Z98.890 1972 S/P IVC filter Z95.828 x2 1995 cystectomy right breast, non cancerous 1966 Surgical History: - - s/p right breast biopsy, s/p IVC filter Psychiatric History: No pertinent psych hx 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 Lives: Alone Smoking Status: Former smoker Tobacco Use: Secondhand, Cigarettes Alcohol: None Drugs: None - *Family History Paternal Family History: Family History (Last Reviewed 03/08/19 @ 12:56 by ARA Collins) Mother Arthritis Dementia History Items: Unknown Maternal Family History: Family History (Last Reviewed 03/08/19 @ 12:56 by ARA Collins) Mother Arthritis Dementia History Items: No pertinent history Review of Systems Comment: See HPI Patient Problems: Active and Suspected Problems (Last Reviewed 03/08/19 @ 12:56 by ARA Collins) Acute pulmonary embolism (Acute) Malnutrition (Acute) Objective: Patient has no previous echocardiogram a [facility] - Physical Exam Vitals/I&O's: Vital Signs Temp Pulse Resp BP Pulse Ox 36.8 C 95 18 125/75 H 98 05/17/19 07:46 05/17/19 07:46 05/17/19 07:46 05/17/19 07:46 05/17/19 07:46 Oxygen Flow Rate (L/min) 2 Oxygen Delivery Method Nasal Cannula Weight: 43.4 kg Body Mass Index (BMI) 18.5 Intake and Output for Last 24 Hours 05/15/19 05/16/19 05/17/19 23:59 23:59 23:59 Intake Total 1037.5 / 1517.5 942.5 / 942.5 Balance 1037.5 / 1517.5 942.5 / 942.5 General: Alert, Oriented x3, Cooperative, - - Mild conversational dyspnea HEENT: Atraumatic, PERRLA, EOMI, Normocephalic, - - Some temporal wasting Oral: Moist Mucosa, No Gingival or Mucosal Lesions/ Ulcerations Neck: Supple, No JVD, No Nodes, Trachea Midline Lungs: No rhonchi, No rales, Diminished, Wheezes - Sporadic at end exhalation Cardiovascular: Regular rate, Regular Rhythm, Normal S1, Normal S2, No murmurs, No rub noted, No Gallop Abdomen: Bowel Sounds Present, Soft, Non Tender, Non-Distended Extremities: No cyanosis, No edema, Capillary Refill Less than 3 Seconds, Clubbing Skin: No rashes, No breakdown Musculoskeletal: No Tenderness to Palpation of Joints or Extremities Lymphatic: No Cervical, Supraclavicular, or Inguinal Adenopathy Neurological: Cranial nerves II-XII grossly intact, Neuro grossly intact, Motor Exam 5/5 strength throughout Psych/Mental Status: Alert and oriented to time, place, person, mood and affect Laboratory Results 05/16/19 16:20: WBC 12.1 H, RBC 4.65, Hgb 14.4, Hct 44.1, MCV 94.8, MCH 31.0, MCHC 32.7, RDW Std Deviation 50.4 H, RDW Coeff of Bing 14.6, Plt Count 431, MPV 9.7, Immature Gran % (Auto) 0.400, Neut % (Auto) 67.9, Lymph % (Auto) 22.1, [place] % (Auto) 7.7, Eos % (Auto) 0.8, Baso % (Auto) 1.1 H, Absolute Neuts (auto) 8.2 H , Absolute Lymphs (auto) 2.67, Nucleated RBC % 0 05/16/19 16:20: Sodium 142, Potassium 3.4 L, Chloride 106, Carbon Dioxide 31.0, Anion Gap 5, BUN 8, Creatinine 0.59, Estim Creat Clear Calc 35.84, Est GFR (MDRD) Af Amer 128, Est GFR (MDRD) Non-Af 106, BUN/Creatinine Ratio 13.5, Glucose 85, Calcium 10.6 H, Troponin I < 0.015 05/16/19 16:20: Lactic Acid Cancelled 05/16/19 16:20: B-Natriuretic Peptide 37.4 05/16/19 18:15: Lactic Acid 1.3 05/17/19 05:40: WBC 7.7, RBC 3.88 L, Hgb 11.8 L, Hct 37.1, MCV 95.6, MCH 30.4, MCHC 31.8 L, RDW Std Deviation 52.0 H, RDW Coeff of Bing 14.6, Plt Count 355, MPV 9.5, Immature Gran % (Auto) 1.200 H, Neut % (Auto) 85.6 H, Lymph % (Auto) 12.1 L , [place] % (Auto) 1.0, Eos % (Auto) 0.0, Baso % (Auto) 0.1, Absolute Neuts (auto) 6.6, Absolute Lymphs (auto) 0.93, Nucleated RBC % 0 05/17/19 05:40: Sodium 144, Potassium 4.5, Chloride 112 H, Carbon Dioxide 28.0, BUN 8, Creatinine 0.52 L, Estim Creat Clear Calc 35.35, Est GFR (MDRD) Af Amer 148, Est GFR (MDRD) Non-Af 122, BUN/Creatinine Ratio 15.3, Glucose 107 H, C alcium 8.9, Phosphorus 3.6, Albumin 2.9 L Current Medications Acetaminophen (Tylenol) 650 mg PO Q6H PRN PRN PRN Reason: Pain Score 1-3/Temp > 100.7 F Albuterol/Ipratropium (Duoneb) 3 ml INHALATION Q4HWA.RT [facility] Last Admin: 05/17/19 07:09 Dose: 3 ml Documented by: Enoxaparin Sodium (Lovenox) 40 mg SC BID [facility] Fluticasone Propionate (Flonase Nasal [place]) 2 spray NASAL DAILY [facility] Last Admin: 05/17/19 09:16 Dose: 2 spray Documented by: Azithromycin 500 mg/ Dextrose 255 mls @ 250 mls/hr IV Q24 [facility] Last Admin: 05/17/19 09:16 Dose: 250 mls/hr Documented by: Sodium Chloride () 250 mls @ 15 mls/hr IV .[id number] PRN PRN Reason: Saline Flush Methylprednisolone (Solu-Medrol) 40 mg IV Q8 [facility] Last Admin: 05/17/19 06:21 Dose: 40 mg Documented by: Nutritional Formula (Lactose Free) (Ensure Enlive) 120 ml PO 4X/DAY [facility] Last Admin: 05/17/19 09:28 Dose: 120 ml Documented by: Ondansetron HCl (Zofran) 4 mg IV Q8H PRN PRN PRN Reason: NAUSEA/VOMITING Oxycodone HCl (Oxycontin) 15 mg PO BID [facility] Last Admin: 05/17/19 09:15 Dose: 15 mg Documented by: Sodium Chloride () 10 - 40 ml IV UD PRN PRN Reason: SALINE FLUSH Last Admin: 05/17/19 06:20 Dose: 10 ml Documented by: Clinical Impression(s) from Imaging Studies Chest X-Ray 05/16/19 16:05 IMPRESSION: Normal x-ray examination of the chest. Electronically Signed: Mook Britt MD at 16:26 EST Tel , Service support , Chest CTA 05/16/19 16:25 IMPRESSION: Chronic eccentric nonocclusive thromboembolic material is present in right lower lobe arterial branches. No acute, occlusive pulmonary embolus is identified. Electronically Signed: Rosendo Leon MD at 18:01 EST Tel , Service support , Assessment/Plan All Active Problems (Last Reviewed 03/08/19 @ 12:56 by Tiffanie Calabrese NP-C) Acute pulmonary embolism (Acute) Malnutrition (Acute) PND (post-nasal drip) (Acute) Thrush, oral (Acute) Lung nodule (Acute) History of blood clots (Acute) RECOMMENDATIONS: 1. Initiate lifelong anticoagulation with 10 a inhibitor 2. Continue baseline medications 3. Likely okay to discontinue antibiotics from my perspective 4. Patient can likely be discharged on prednisone therapy to complete a 5- day burst of 40 mg 5. Outpatient transition to Perforomist from Spiriva 6. Can obtain an echocardiogram as an outpatient IMPRESSIONS: 1. Chronic hypoxic respiratory failure exacerbated by pulmonary emboli Patient appears to have chronic pulmonary emboli noted on CT scan of the chest. Patient does have a previous history of clotting issues, but was not on anticoagulation on presentation. Patient has no contraindications to anticoagulation at this time. This should be initiated. Given patient's previous clot history, recommendations would be for lifelong anticoagulation. This may be the etiology of patient's worsening shortness of breath, so likely okay to discontinue antibiotics. Prednisone can be transition to a 5-day burst. Patient can continue baseline medications on discharge, but is requesting transition to nebulized therapy instead of Spiriva at outpatient follow-up. Patient should likely have an echocardiogram for evaluation of CTEPH, but this can easily be completed as an outpatient. Lower extremity Dopplers were negative, but patient reportedly has had an IVC filter placed previously and may have clot accumulating on the filter if still present. 2. Stage IV COPD with asthma overlap Patient's acute exacerbation may be secondary to blood clots alone. Patient is not giving any signs or symptoms of other exacerbation such as change in sputum or frequency of coughing. Chest pain may be secondary to pleurisy associated with previous blood clot. Patient should follow-up with nurse practitioner 2 weeks after discharge to arrange for echocardiogram and transition to nebulized therapy. 3. Severe malnutrition/scoliosis/arthritis/chronic pain syndrome/advanced age Complicates care, management, recovery and prognosis. Okay to continue with baseline medications from a respiratory standpoint. Code Visit Inpatient E&M: 14300 Init Hosp L2
--- NOTE | 2019-05-17 09:51 | CASEMGMT ---
Addendum entered by Sheryl Bains 05/17/19 10:18: Pt states the nebulizer she has available was not ordered for her, stating that it was her late 's and it was never used. Original Note: RN CM REFUGE WORKER CM to room to meet with patient for initial transition planning/care coordination assessment. RN NIKKI introduced self and role at [facility]. Pt voices understanding and consents to assessment at this time. Pt resting in bed in no distress at this time. Pt is A/O at this time and answers all questions appropriately. Care providers, pharmacy, and demographics verified/updated at this time. PCP: Alma Delia Specialists: Myke/Anoop--pulmonology Preferred Pharmacy: [facility] Insurance: [facility], [facility] Prescription Benefit: [employer] Living Will/HPOA: does not have LW or HCPOA . Interested in more information and would like to talk to SW to complete paperwork. States she would want her son, Preston, to be her POA LNOK: Has 3 living adult children. States Johnston is the only one involved/close to her. Living Arrangements: Lives alone. Lives in a double-wide trailer with 3 steps to enter. Denies difficulty w/stairs. is independent w/all ADL's and home mgmt tasks. Transportation: Pt states drives self and states no transportation concerns at this time. Son, Preston, will take her home @ Discharge DME: has the following DME: shower chair, hand-held shower, O2 @ 2L/M through [employer]. Has concentrator and portability. Has portable O2 in room to go home on. has a new nebulizer, but does not have any medicine to put in it. has a cane and walker but does not use. Walks independently. Pt states no need for further DME at this time. HHC/SNF: No history of either. No needs identified. Pt wishes to return home and states has no concerns with going home at time of discharge. CM to follow for home oxygen needs and any further discharge planning/needs. Pt voices no further concerns/needs at this time. Advised pt to ask for CM if any further questions/concerns/needs arise. Voices understanding. PLAN: Home. CM to follow for anticoagulant @ discharge. May need script for aerosal tx's. PT/OT evals pending. SW consult for AD. Ami BSN RN CM
--- NOTE | 2019-05-17 10:44 | PN_ITS ---
Patient Problems: Active and Suspected Problems (Last Reviewed 03/08/19 @ 12:56 by Tiffanie Calabrese NP-C) Acute pulmonary embolism (Acute) Malnutrition (Acute) Subjective: Chief complaint: Follow-up after admission for acute COPD exacerbation, acute on chronic hypoxic respiratory failure and chronic right lower lung PEs. Patient seen and examined. No acute events overnight. Today, she is feeling better, shortness of breath started to improve. Still having some cough, no sputum production. Denied chest pain. She has been afebrile, pulse ox is 98% on 2 L. Other vital signs are stable. - Physical Exam Vitals/I&O's: Vital Signs Temp Pulse Resp BP Pulse Ox 98.2 F 95 18 125/75 H 98 05/17/19 07:46 05/17/19 07:46 05/17/19 07:46 05/17/19 07:46 05/17/19 07:46 Oxygen Flow Rate (L/min) 2 Oxygen Delivery Method Nasal Cannula Weight: 95 lb 10.89 oz Body Mass Index (BMI) 18.5 Intake and Output for Last 24 Hours 05/15/19 05/16/19 05/17/19 23:59 23:59 23:59 Intake Total 1037.5 / 1517.5 1197.5 / 1197.5 Balance 1037.5 / 1517.5 1197.5 / 1197.5 General: Alert, Oriented x3, Cooperative, - - Minimally short of breath. HEENT: Atraumatic, PERRLA, EOMI, Normocephalic Oral: Moist Mucosa, No Gingival or Mucosal Lesions/ Ulcerations Neck: Supple, No JVD, Negative Carotid Bruits, Trachea Midline, Thyroid Normal Size and Texture Lungs: No rales, Diminished, Rhonchi, Wheezes, - - Decreased breath sounds bilateral, bilateral rhonchi, occasional wheezes. Cardiovascular: Regular rate, Regular Rhythm, Normal S1, Normal S2, PMI Normal Abdomen: Bowel Sounds Present, Soft, Non Tender, Non-Distended, No Hepato- splenomegaly Extremities: No clubbing, No cyanosis, No edema Skin: No rashes, No breakdown Lymphatic: No Cervical, Supraclavicular, or Inguinal Adenopathy Neurological: Cranial nerves II-XII grossly intact, Neuro grossly intact Psych/Mental Status: Normal Affect, Appropriate Microbiology Past 72 Hours 05/16/19 21:46 Mucosa - Nasopharyngeal Respiratory Panel (PCR) - Final Laboratory Results 05/16/19 16:20: WBC 12.1 H, RBC 4.65, Hgb 14.4, Hct 44.1, MCV 94.8, MCH 31.0, MCHC 32.7, RDW Std Deviation 50.4 H, RDW Coeff of Bing 14.6, Plt Count 431, MPV 9.7, Immature Gran % (Auto) 0.400, Neut % (Auto) 67.9, Lymph % (Auto) 22.1, Mcdowell % (Auto) 7.7, Eos % (Auto) 0.8, Baso % (Auto) 1.1 H, Absolute Neuts (auto) 8.2 H , Absolute Lymphs (auto) 2.67, Nucleated RBC % 0 05/16/19 16:20: Sodium 142, Potassium 3.4 L, Chloride 106, Carbon Dioxide 31.0, Anion Gap 5, BUN 8, Creatinine 0.59, Estim Creat Clear Calc 35.84, Est GFR (MDRD) Af Amer 128, Est GFR (MDRD) Non-Af 106, BUN/Creatinine Ratio 13.5, Glucose 85, Calcium 10.6 H, Troponin I < 0.015 05/16/19 16:20: Lactic Acid Cancelled 05/16/19 16:20: B-Natriuretic Peptide 37.4 05/16/19 18:15: Lactic Acid 1.3 05/17/19 05:40: WBC 7.7, RBC 3.88 L, Hgb 11.8 L, Hct 37.1, MCV 95.6, MCH 30.4, MCHC 31.8 L, RDW Std Deviation 52.0 H, RDW Coeff of Bing 14.6, Plt Count 355, MPV 9.5, Immature Gran % (Auto) 1.200 H, Neut % (Auto) 85.6 H, Lymph % (Auto) 12.1 L , Mcdowell % (Auto) 1.0, Eos % (Auto) 0.0, Baso % (Auto) 0.1, Absolute Neuts (auto) 6.6, Absolute Lymphs (auto) 0.93, Nucleated RBC % 0 05/17/19 05:40: Sodium 144, Potassium 4.5, Chloride 112 H, Carbon Dioxide 28.0, BUN 8, Creatinine 0.52 L, Estim Creat Clear Calc 35.35, Est GFR (MDRD) Af Amer 148, Est GFR (MDRD) Non-Af 122, BUN/Creatinine Ratio 15.3, Glucose 107 H, Calcium 8.9, Phosphorus 3.6, Albumin 2.9 L Clinical Impression(s) from Imaging Studies Chest X-Ray 05/16/19 16:05 IMPRESSION: Normal x-ray examination of the chest. Electronically Signed: Mook Britt MD at 16:26 EST Tel , Service support , Chest CTA 05/16/19 16:25 IMPRESSION: Chronic eccentric nonocclusive thromboembolic material is present in right lower lobe arterial branches. No acute, occlusive pulmonary embolus is identified. Electronically Signed: Rosendo Leon MD at 18:01 EST Tel , Service support , Current Medications Acetaminophen (Tylenol) 650 mg PO Q6H PRN PRN PRN Reason: Pain Score 1-3/Temp > 100.7 F Albuterol/Ipratropium (Duoneb) 3 ml INHALATION Q4HWA.RT [facility] Last Admin: 05/17/19 07:09 Dose: 3 ml Documented by: Apixaban (Eliquis) 5 mg PO BID [facility] Fluticasone Propionate (Flonase Nasal [place]) 2 spray NASAL DAILY [facility] Last Admin: 05/17/19 09:16 Dose: 2 spray Documented by: Azithromycin 500 mg/ Dextrose 255 mls @ 250 mls/hr IV Q24 [facility] Last Infusion: 05/17/19 10:34 Dose: Infused Documented by: Sodium Chloride () 250 mls @ 15 mls/hr IV .[id number] PRN PRN Reason: Saline Flush Methylprednisolone (Solu-Medrol) 40 mg IV Q8 [facility] Stop: 05/17/19 14:01 Last Admin: 05/17/19 06:21 Dose: 40 mg Documented by: Nutritional Formula (Lactose Free) (Ensure Enlive) 120 ml PO 4X/DAY [facility] Last Admin: 05/17/19 09:28 Dose: 120 ml Documented by: Ondansetron HCl (Zofran) 4 mg IV Q8H PRN PRN PRN Reason: NAUSEA/VOMITING Oxycodone HCl (Oxycontin) 15 mg PO BID [facility] Last Admin: 05/17/19 09:15 Dose: 15 mg Documented by: Sodium Chloride () 10 - 40 ml IV UD PRN PRN Reason: SALINE FLUSH Last Admin: 05/17/19 06:20 Dose: 10 ml Documented by: Medical Necessity - Tobacco Use Smoking Status: Former smoker Tobacco Use: Secondhand, Cigarettes Assessment/Plan All Active Problems (Last Reviewed 03/08/19 @ 12:56 by Tiffanie Calabrese, NAMRATA-C) Acute pulmonary embolism (Acute) Malnutrition (Acute) This is a 73 years old female patient presented to the emergency room because of worsening shortness of breath with cough and she was found to have acute COPD exacerbation with acute on chronic hypoxic respiratory failure and also found to have chronic right lower lung pulmonary emboli. #1 acute COPD exacerbation: Chest x-ray without acute findings. CTA chest reviewed as above. She is on IV Zithromax, IV Solu-Medrol and bronchodilators. Symptoms improved, oxygen requirement has been decreasing. Respiratory panel for viruses were negative. Blood cultures pending. Plan: We will give 1 more dose of IV Solu-Medrol and then discontinue, start oral prednisone tomorrow morning, continue other treatments, anticipate discharge home tomorrow. #2 acute on chronic hypoxic respiratory failure: Secondary to above. At home, she has been on oxygen at 2 L. She required up to 3 L of oxygen and today, oxygen requirement has been decreasing and she is down to 2 L. Plan as above. #3 chronic right lower lung pulmonary emboli: She is on therapeutic Lovenox twice daily. Plan to start Eliquis tonight. #4 protein calorie malnutrition: Nutrition consulted. #5 COPD/chronic respiratory failure: Oxygen at 2 L. Plan as above. #6 chronic low back pain/scoliosis: Under control, continue OxyIR PRN. #7 DVT prophylaxis: She is on therapeutic Lovenox twice daily, she will be started on Eliquis tonight. This note was generated with Cod[employer] software. It may contain incorrect words, spelling, and punctuation that were not noted in checking the note before signing. Code Visit Inpatient E&M: 50839 Subs Hosp L2
--- NOTE | 2019-05-17 11:56 | CASEMGMT ---
SW assisted pt in completing LW/POA forms, pt listed son Preston as POA. SW gave pt originals and copies and a copy was placed on the chart. SW also spoke w/pt about palliative care. Pt did take a brochure and will follow up with palliative care if she would like more information or a referral. MAHI Lehman
--- NOTE | 2019-05-17 15:11 | CHAPLAIN ---
Type of Pastoral Visit _x__ Initial Visit ___ Follow-up Visit ___ On-call Visit ___ General Patient Visit ___ Spiritual Assessment ___ Family Conference ___ Bereavement ___ Rapid Response ___ Code Blue ___ Other (describe below) Pastoral Care Referral From _x__ Patient ___ Family ___ Nurse ___ Physician ___ Paper Products Printer ___ Bioinformatics Research Technician ___ Other (describe below) Sacrament/Intervention _x__ Active listening ___ Anointing ___ Rastafari ___ Bereavement ___ Communion ___ Stefany exploration ___ ___ Life review _x__ Prayer ___ Reconciliation ___ Sacrament of Sick ___ Supportive presence ___ Wedding ___ Other (describe below) Pastoral Comments
--- NOTE | 2019-05-17 15:52 | NURSING ---
This RN taking over patient care at this time. Handoff received from Caitlin Pepe RN
[2019-05-17] MEDS: Acetaminophen 325 MG Tablet 650 MG PO (18:08)
[2019-05-17] MEDS: Ondansetron 4 MG/2 ML Vial IV (19:47)
[2019-05-17] MEDS: APIXABAN 5 MG TABLET PO (21:02)
[2019-05-18] MEDS: MELATONIN 3 MG TABLET PO (00:24)
[2019-05-18 03:00] VITALS: PULSE 101
[2019-05-18 03:04] VITALS: BP 136/73; PULSE 85; RESP 16; TEMP 37; O2SAT 97
[2019-05-18 06:51] VITALS: PULSE 99
[2019-05-18 07:10] VITALS: PULSE 84; RESP 16; O2SAT 97
[2019-05-18] MEDS: Ipratropium/Albuterol Sulfate 3 ML AMPUL.NEB INHALATION (07:18)
[2019-05-18 07:40] VITALS: BP 154/85; PULSE 89; RESP 16; TEMP 36.7; O2SAT 96
--- NOTE | 2019-05-18 08:08 | PCM.DC ---
- Discharge Diagnoses Current Active Problems: Current Active and Chronic Problems (Last Updated 05/17/19 @ 10:47 by Ynoi Perla MD) Acute pulmonary embolism (Acute) Malnutrition (Acute) You will use the following diet at home:: Regular Your food should be the consistency of: Regular Discharge Activity: Return to Normal Activity Weight Bearing Status: Weight bearing as tolerated Call your doctor if you observe: Fever of 101 or Higher, Shortness of breath, Dizziness, Fainting spells, Swelling in the ankles, Chest pain, Increased palpitations (irregular heartbeat), Uncontrolled pain Instructions: Pulmonary Embolism, Apixaban Oral tablet Allergies/Adverse Reactions: Allergies No Known Allergies Allergy (Verified 05/16/19 15:57) Medications to take at Discharge oxycodone ER 13.5 mg capsule sprinkle extend release 12hr(DON'T CRUSH) 13.5 mg PO BID 01/10/19 budesonide-formoterol HFA 160 mcg-4.5 mcg/actuation aerosol inhaler 2 puff INHALATION BID #1 device 03/08/19 Albuterol Sulfate [Ventolin Hfa] 2 puff INHALATION Q6H PRN PRN 05/16/19 Fluticasone Propionate 2 spray INTRANASAL DAILY 05/16/19 Tiotropium [place] [Spiriva Respimat] 2 puff INHALATION DAILY 05/16/19 Apixaban [Eliquis] 5 mg PO BID #90 tab 05/18/19 predniSONE tablet 40 mg PO DAILY@0800 #10 tab 05/18/19 The following prescriptions were given: Apixaban [Eliquis] 5 mg PO BID #90 tab Transmission Status: Pending to [facility] predniSONE tablet 40 mg PO DAILY@0800 #10 tab Transmission Status: Pending to [facility] Primary Care Physician: Mary Flannery MD [Primary Care Provider] - Please follow up with your Primary Care Physician in: 1 WEEK. Test Results: Test results from this visit will be discussed in further detail at your follow-up appointment, if applicable. Please Follow Up With: Mary Flannery MD Please Follow Up With: Merrill Davalos DO When: 3-4 WEEKS.
[2019-05-18 08:44] VITALS: BP 157/89; PULSE 97; RESP 18; TEMP 36.7; O2SAT 96
[2019-05-18] MEDS: Fluticasone 0.05% 1 SPRAY NASAL.SRY 2 SPRAY NASAL (08:45)
[2019-05-18] MEDS: APIXABAN 5 MG TABLET PO (08:46)
[2019-05-18] MEDS: predniSONE 20 MG Tablet 40 MG PO (08:46)
[2019-05-18] MEDS: oxyCODONE CR 15 MG Tablet PO (08:50)
--- NOTE | 2019-05-18 09:37 | CASEMGMT ---
Addendum entered by Diana Murillo 05/18/19 09:56: Pt had been requesting nebulizer meds as she has her husbands nebulizer at home. Dr. Perla aware but does not feel they would be helpful for pt at this time. Pt does have several inhalers ordered already. Derek CARIAS CM Original Note: Pt to be sent home on Eliquis and med previously e-scribed to [facility] in [place]. Call to [employer] and per tech, pt has no co-pay for Eliquis at this time. Pt is up for discharge at this time. Derek CARIAS CM
--- NOTE | 2019-05-18 10:57 | DS.PCM_ITS ---
Discharge Date and Diagnosis - Problem List Patient Problems: Active and Suspected Problems (Last Updated 05/17/19 @ 10:47 by Yoni Peral MD) Acute pulmonary embolism (Acute) Malnutrition (Acute) Date of Admission: 05/16/19 Date of Discharge: 05/18/19 - Primary Discharge Diagnosis Active and Suspected Problems (Last Updated 05/17/19 @ 10:47 by Yoni Perla MD) #1 acute COPD exacerbation. #2 acute on chronic hypoxic respiratory failure. #3 newly diagnosed chronic right lower lung pulmonary emboli. 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 Electronically Signed: Mook Britt MD at 16:26 EST Tel , Service support , Chest CTA 05/16/19 16:25 IMPRESSION: Chronic eccentric nonocclusive thromboembolic material is present in right lower lobe arterial branches. No acute, occlusive pulmonary embolus is identified. Electronically Signed: Rosendo Leon MD at 18:01 EST Tel , Service support , Dr. Stringer, pulmonology. Operations: None Procedures: None Summary of Care Provided: Patient seen and examined on the day of discharge and appeared to be stable to be discharged home. Shortness of breath improved and she thinks that she is back to her baseline. Remained stable on 2 L of oxygen, other vital signs are stable. The patient is a 73 year old F patient presented to the emergency room because of worsening shortness of breath and cough and she was found to have acute COPD exacerbation complicated by acute on chronic hypoxic respiratory failure and also was diagnosed with chronic right lower lobe pulmonary emboli. Chest x-ray on admission showed no acute findings. CTA chest revealed chronic eccentric nonocclusive thromboemboli in the right lower lobe arterial branches and this is newly diagnosed, there was no acute PEs. Her routine blood work was remarkable for mild leukocytosis which resolved with an potassium of 3.4 which was replaced and corrected. Her EKG revealed no acute segment changes. Venous Doppler of the bilateral lower extremity showed no evidence of acute DVT. Patient was treated with IV steroids, bronchodilators and therapeutic Lovenox twice daily. Pulmonology consulted and recommended Eliquis. Patient was switched to Eliquis p.o. 5 mg p.o. twice daily. With above-mentioned treatment, patient symptoms improved and her oxygen requirement decreased. She remained stable on 2 L which is her baseline at home. Patient discharged home in a stable medical condition, discharged on prednisone 40 mg p.o. daily for 5 days, discharged on Eliquis 5 mg p.o. twice daily, continued on her previous home medications and inhalers without any changes, plan to follow-up with pulmonology in 3 to 4 weeks and follow-up with PCP in 1 week. Patient Problems: Active and Suspected Problems (Last Updated 05/17/19 @ 10:47 by Yoni Perla MD) Acute pulmonary embolism (Acute) Malnutrition (Acute) - Physical Exam Vitals/I&O's: Vital Signs Temp Pulse Resp BP Pulse Ox 98.1 F 97 18 157/89 H 96 05/18/19 08:44 05/18/19 08:44 05/18/19 08:44 05/18/19 08:44 05/18/19 08:44 Oxygen Flow Rate (L/min) 2 Oxygen Delivery Method Nasal Cannula Weight: 93 lb 7.616 oz Body Mass Index (BMI) 18.5 Intake and Output for Last 24 Hours 05/16/19 05/17/19 05/18/19 23:59 23:59 23:59 Intake Total 1037.5 / 1517.5 2257.5 / 2257.5 255 / 255 Balance 1037.5 / 1517.5 2257.5 / 2257.5 255 / 255 General: Alert, Oriented x3, Cooperative, No apparent distress HEENT: Atraumatic, PERRLA, EOMI, Normocephalic Oral: Moist Mucosa, No Gingival or Mucosal Lesions/ Ulcerations Neck: Supple, No JVD, Negative Carotid Bruits, Trachea Midline, Thyroid Normal Size and Texture - Diminished breath sounds Lungs: No wheeze, No rales, Diminished, Rhonchi, - - Diminished breath sounds bilateral, scattered rhonchi. Cardiovascular: Regular rate, Regular Rhythm, Normal S1, Normal S2, PMI Normal Abdomen: Bowel Sounds Present, Soft, Non Tender, Non-Distended, No Hepato- splenomegaly Extremities: No clubbing, No cyanosis, No edema Skin: No rashes, No breakdown Lymphatic: No Cervical, Supraclavicular, or Inguinal Adenopathy Neurological: Cranial nerves II-XII grossly intact, Neuro grossly intact Psych/Mental Status: Normal Affect, Appropriate, Alert and oriented to time, place, person, mood and affect Microbiology Past 72 Hours 05/16/19 21:46 Mucosa - Nasopharyngeal Respiratory Panel (PCR) - Final Current Medications Acetaminophen (Tylenol) 650 mg PO Q6H PRN PRN PRN Reason: Pain Score 1-3/Temp > 100.7 F Last Admin: 05/17/19 18:08 Dose: 650 mg Documented by: Albuterol/Ipratropium (Duoneb) 3 ml INHALATION Q4HWA.RT [facility] Last Admin: 05/18/19 07:18 Dose: 3 ml Documented by: Apixaban (Eliquis) 5 mg PO BID [facility] Last Admin: 05/18/19 08:46 Dose: 5 mg Documented by: Fluticasone Propionate (Flonase Nasal [place]) 2 spray NASAL DAILY [facility] Last Admin: 05/18/19 08:45 Dose: 2 spray Documented by: Azithromycin 500 mg/ Dextrose 255 mls @ 250 mls/hr IV Q24 [facility] Last Infusion: 05/18/19 10:23 Dose: Infused Documented by: Sodium Chloride () 250 mls @ 15 mls/hr IV .[id number] PRN PRN Reason: Saline Flush Melatonin (Melatonin) 3 mg PO QHS [facility] Last Admin: 05/18/19 00:24 Dose: 3 mg Documented by: Nutritional Formula (Lactose Free) (Ensure Enlive) 120 ml PO 4X/DAY [facility] Last Admin: 05/18/19 08:46 Dose: Not Given Documented by: Ondansetron HCl (Zofran) 4 mg IV Q8H PRN PRN PRN Reason: NAUSEA/VOMITING Last Admin: 05/17/19 19:47 Dose: 4 mg Documented by: Oxycodone HCl (Oxycontin) 15 mg PO BID [facility] Last Admin: 05/18/19 08:50 Dose: 15 mg Documented by: Prednisone () 40 mg PO DAILY@0800 [facility] Last Admin: 05/18/19 08:46 Dose: 40 mg Documented by: Sodium Chloride () 10 - 40 ml IV UD PRN PRN Reason: SALINE FLUSH Last Admin: 05/17/19 14:15 Dose: 10 ml Documented by: Discharge Activity: Return to Normal Activity Weight Bearing Status: Weight bearing as tolerated Call your doctor if you observe: Fever of 101 or Higher, Shortness of breath, Dizziness, Fainting spells, Swelling in the ankles, Chest pain, Increased palpitations (irregular heartbeat), Uncontrolled pain Home Medications: Medications to take at Discharge oxycodone ER 13.5 mg capsule sprinkle extend release 12hr(DON'T CRUSH) 13.5 mg PO BID 01/10/19 budesonide-formoterol HFA 160 mcg-4.5 mcg/actuation aerosol inhaler 2 puff INHALATION BID #1 device 03/08/19 Albuterol Sulfate [Ventolin Hfa] 2 puff INHALATION Q6H PRN PRN 05/16/19 Fluticasone Propionate 2 spray INTRANASAL DAILY 05/16/19 Tiotropium [place] [Spiriva Respimat] 2 puff INHALATION DAILY 05/16/19 Apixaban [Eliquis] 5 mg PO BID #90 tab 05/18/19 predniSONE tablet 40 mg PO DAILY@0800 #10 tab 05/18/19 Following Prescrptions Were Given to Patient: Apixaban [Eliquis] 5 mg PO BID #90 tab Transmission Status: Received by [facility] predniSONE tablet 40 mg PO DAILY@0800 #10 tab Transmission Status: Received by [facility] Primary Care Physician: Mary Flannery MD [Primary Care Provider] - Please follow up with your Primary Care Physician in: 1 WEEK. Please Follow Up With: Mary Flannery MD Please Follow Up With: Merrill Davalos DO When: 3-4 WEEKS. Patient Instructions: Apixaban Oral tablet, Pulmonary Embolism Disposition: Home Minutes spent on discharge:: 27 Patient Condition:: Stable Medical Necessity - Tobacco Use Smoking Status: Former smoker Tobacco Use: Secondhand, Cigarettes Meaningful Use Info Meaningful Use Diagnoses (Choose all that apply): None applicable Code Visit Inpatient E&M: 29569 Disch Hosp
--- NOTE | 2019-05-18 11:05 | PN_ITS ---
Subjective: Patient reports subjective improvement in respiratory status compared to yesterday. Patient's oxygen status has remained at her baseline. Patient denies any chest pain, hemoptysis, fever or chills. No bleeding complications have been reported otherwise. - Physical Exam Vitals/I&O's: Vital Signs Temp Pulse Resp BP Pulse Ox 36.7 C 97 18 157/89 H 96 05/18/19 08:44 05/18/19 08:44 05/18/19 08:44 05/18/19 08:44 05/18/19 08:44 Oxygen Flow Rate (L/min) 2 Oxygen Delivery Method Nasal Cannula Weight: 42.4 kg Body Mass Index (BMI) 18.5 Intake and Output for Last 24 Hours 05/16/19 05/17/19 05/18/19 23:59 23:59 23:59 Intake Total 1037.5 / 1517.5 2257.5 / 2257.5 255 / 255 Balance 1037.5 / 1517.5 2257.5 / 2257.5 255 / 255 General: Alert, Oriented x3, Cooperative, No apparent distress, Well developed, Well nourished, - - Appears older than stated age. No conversational dyspnea. HEENT: Atraumatic, PERRLA, EOMI, Normocephalic Oral: Moist Mucosa, No Gingival or Mucosal Lesions/ Ulcerations Neck: Supple, No JVD, No Nodes, Trachea Midline Lungs: No rhonchi, No wheeze, No rales, Diminished Cardiovascular: Regular rate, Regular Rhythm, Normal S1, Normal S2, No murmurs, No rub noted, No Gallop Abdomen: Bowel Sounds Present, Soft, Non Tender, Non-Distended Extremities: No cyanosis, No edema, Capillary Refill Less than 3 Seconds, Clubbing Skin: No rashes, No breakdown Musculoskeletal: No Tenderness to Palpation of Joints or Extremities Lymphatic: No Cervical, Supraclavicular, or Inguinal Adenopathy Neurological: Cranial nerves II-XII grossly intact, Motor Exam 5/5 strength throughout Psych/Mental Status: Alert and oriented to time, place, person, mood and affect Microbiology Past 72 Hours 05/16/19 21:46 Mucosa - Nasopharyngeal Respiratory Panel (PCR) - Final Medical Necessity - Tobacco Use Smoking Status: Former smoker Tobacco Use: Secondhand, Cigarettes Assessment/Plan All Active Problems (Last Updated 05/17/19 @ 10:47 by Yoni Perla MD) Acute pulmonary embolism (Acute) Malnutrition (Acute) RECOMMENDATIONS: 1. Initiate lifelong anticoagulation with 10 a inhibitor 2. Continue baseline medications 3. Likely okay to discontinue antibiotics from my perspective 4. Patient can likely be discharged on prednisone therapy to complete a 5- day burst of 40 mg 5. Outpatient transition to Perforomist from Spiriva 6. Can obtain an echocardiogram as an outpatient 7. Okay to discharge from a pulmonary perspective IMPRESSIONS: 1. Chronic hypoxic respiratory failure exacerbated by pulmonary emboli Patient appears to have chronic pulmonary emboli noted on CT scan of the chest. Patient does have a previous history of clotting issues, but was not on anticoagulation on presentation. Patient has no contraindications to anticoagulation at this time. This should be initiated. Given patient's previous clot history, recommendations would be for lifelong anticoagulation. This may be the etiology of patient's worsening shortness of breath, so likely okay to discontinue antibiotics. Prednisone can be transition to a 5-day burst. Patient can continue baseline medications on discharge, but is requesting transition to nebulized therapy instead of Spiriva at outpatient follow-up. Patient should likely have an echocardiogram for evaluation of CTEPH, but this can easily be completed as an outpatient. Lower extremity Dopplers were negative, but patient reportedly has had an IVC filter placed previously and may have clot accumulating on the filter if still present. Patient can be discharged from a pulmonary perspective 2. Stage IV COPD with asthma overlap Patient's acute exacerbation may be secondary to blood clots alone. Patient is not giving any signs or symptoms of other exacerbation such as change in sputum or frequency of coughing. Chest pain may be secondary to pleurisy associated with previous blood clot. Patient should follow-up with nurse practitioner 2 weeks after discharge to arrange for echocardiogram and transition to nebulized therapy. 3. Severe malnutrition/scoliosis/arthritis/chronic pain syndrome/advanced age Complicates care, management, recovery and prognosis. Okay to continue with baseline medications from a respiratory standpoint. Code Visit Inpatient E&M: 90303 Subs Hosp L2
--- NOTE | 2019-05-21 13:03 | CASEMGMT ---
Case Management DC F/u call: DC Date: 05/18/19 DC Diagnosis: #1 acute COPD exacerbation. #2 acute on chronic hypoxic respiratory failure. #3 newly diagnosed chronic right lower lung pulmonary emboli. DC Disposition: Home Lace/Strata: 03/08 Called patient cell phone listed on demographics [phone], went to directly to ms forwarded to an automatic Vm, unable/no VM left. Called second listed cell phone on demographics [phone], rang multiple times and went to a busy beeping/off hook sound. Dominick Reyes RNCM
== END 2019-05-18 11:01 | disposition home or self-care (01) | DRG 175 ==
LOC: ED 16:38 → PCU 19:11
PROVIDERS: Admitting Provider Internal Medicine; Emergency Provider Emergency Medicine; Family Provider Internal Medicine; PCP Internal Medicine; Referring Provider Internal Medicine; Visit Provider Hospitalist
DX: I27.82 Chronic pulmonary embolism (principal); J96.21 Acute and chronic respiratory failure with hypoxia; E43 Unspecified severe protein-calorie malnutrition; J44.1 Chronic obstructive pulmonary disease with (acute) exacerbation; Z68.1 Body mass index [BMI] 19.9 or less, adult; Z99.81 Dependence on supplemental oxygen; E87.6 Hypokalemia; Z95.828 Presence of other vascular implants and grafts; M41.9 Scoliosis, unspecified; Z86.718 Personal history of other venous thrombosis and embolism; M19.90 Unspecified osteoarthritis, unspecified site; Z66 Do not resuscitate; Z87.891 Personal history of nicotine dependence
CPT/HCPCS: 36415; 71045; 71275; 80048; 80069; 83605; 83880; 84484; 85025; 87040; 87633; 93005; 93970; 94640; 97162; 97166; 97802; 99251; 99285; J7030; Q9967; A4216; G0463; J2405

== ENCOUNTER → 2019-06-18 16:04 | Outpatient (CLI) | payer MEDICARE, MEDICAID, SELFPAY ==
[2019-06-15 13:12] VITALS: BMI 18.5
--- NOTE | 2019-06-18 16:20 | RAD_ITS ---
STUDY: X-RAY - BILATERAL RIBS WITH CHEST REASON FOR EXAM: Female, 73 years old. Pain. TECHNIQUE - RIBS: 5 view(s) of the ribs. TECHNIQUE - CHEST: Frontal view COMPARISON: 05/16/2019 FINDINGS - RIBS : There are no displaced rib fractures identified. FINDINGS - CHEST: The lungs are hyperinflated, but clear. There are no pleural effusions. There is no pneumothorax. The heart is normal in size. There is stable scoliosis noted in the spine. RAD/Ribs Chilo Min 4V w/PA Chest IMPRESSION: RIBS: No displaced rib fracture identified. CHEST: Clear lungs. Electronically Signed: Dylan Meyer, at 17:42 EST Tel , Service support ,
== END ==
PROVIDERS: Family Provider Internal Medicine; PCP Internal Medicine; Referring Provider Anesthesiology Pain Medicine; Visit Provider Anesthesiology Pain Medicine
DX: R07.9 Chest pain, unspecified (principal)
CPT/HCPCS: 71111

== ENCOUNTER 2019-07-14 15:20 | Inpatient (IN) | payer MEDICARE, MEDICAID, SELFPAY ==
[2019-07-14] VITALS (9 sets, daily range): BP systolic 122–173; BP diastolic 72–104; PULSE 95–111; RESP 13–29; TEMP 36.6–36.9; O2SAT 94–98; BMI 17.9; BMI 18.1; BMI 17.1
--- NOTE | 2019-07-14 15:52 | EKG12_ITS ---
Test Reason : SOB Blood Pressure : / mmHG Vent. Rate : 105 BPM Atrial Rate : 105 BPM P-R Int : 144 ms QRS Dur : 068 ms QT Int : 324 ms P-R-T Axes : 075 -15 065 degrees QTc Int : 428 ms Sinus tachycardia Otherwise normal ECG Confirmed by MEHDI MAYEN, CARLOS ([id number]), photographic editor BERNARDO MENON ([id number]) on 07/19/2019 2:55:06 PM Referred By: NALINI Confirmed By:JANE HARDING MD
[2019-07-14] MEDS: Ipratropium/Albuterol Sulfate 3 ML AMPUL.NEB INHALATION (15:56)
--- NOTE | 2019-07-14 15:57 | ED.DCSUM_ITS ---
- ER Visit Summary Date of Service: 07/14/19 Chief Complaint: Shortness of breath History of Present Illness: The patient is a 73 F presenting with shortness of breath. She states this has been ongoing for the past week but worsened today. She called EMS because she was unable to catch her breath. She complains of right sided lower chest pain. She denies cough. Denies fever. Denies nausea or vomiting. She has a history of PE and is on Eliquis. She is on home O2 as needed. She has a history of COPD. She is a previous smoker. Physical Examination: Vitals are stable. Patient is afebrile. Alert no acute distress. HEENT exam is unremarkable. Neck is supple. Lungs are wheezing bilaterally. Heart is regular and tachycardic Abdomen is soft nontender nondistended. Extremities are unremarkable. Skin is warm and dry. No focal neurologic deficit. Remainder of exam is unremarkable. Emergency Department Course and Treatment: Patient was given albuterol, Atrovent aerosols. EKG is sinus tachycardia rate of 105. Chest x-ray shows no active disease. CBC shows white count 20.5. Chemistries unremarkable. Lipase is normal. Troponin is negative. She was given Solu-Medrol IV. Influenza negative. With ambulation she became extremely dyspneic. Her pulse ox ranged between 86 and 88% on oxygen. She does not feel that she can go home. Discussed with the hospitalist for admission. Disposition: Admission Impression: COPD exacerbation This note was generated with [employer] dictation software. It may contain incorrect words, spelling, and punctuation that were not noted in review of the chart prior to signing ED Disposition - Plan for ED Patient: Referrals: Mary Flannery MD [Primary Care Provider] -
--- NOTE | 2019-07-14 16:09 | RAD_ITS ---
STUDY: X-RAY CHEST REASON FOR EXAM: Female, 73 years old. INCREASING SOB OVER LAST WEEK -- PT HAS HX OF HTN, COPD, EMPHYSEMA AND PE''S TECHNIQUE: Single AP portable view of the chest. COMPARISON: 06/18/2019 FINDINGS: The lungs are clear and expanded. There is no demonstrated pleural abnormality. Normal size heart. Normal mediastinum and tuan. Normal visualized pulmonary arteries. Normal visualized aortic arch and descending thoracic aorta. There is a dextroscoliosis of the thoracic spine. Normal visualized ribs, clavicles, and shoulders. There is no demonstrated abnormality of the visualized soft tissue structures of the upper abdomen. RAD/Chest 1 View (Portable) IMPRESSION: No active disease. Electronically Signed: Mook Britt MD at 16:28 EST Tel , Service support ,
[2019-07-14 17:07] LABS: Mucous, Urine 0 SEEN /hpf (<or=2+); Red Blood Cells-Urine 0 SEEN /hpf (0-5)
[2019-07-14 17:09] LABS: Absolute Lymphocyte Count 2.67 X10^3/uL (0.83-4.51); Basophil# 0.11 X10^3/uL; Basophil% 0.5 % (0-1); Eosinophil# 0.16 X10^3/uL; Eosinophils% 0.8 % (0-5); Hematocrit 42.2 % (37-47); Hemoglobin 13.5 g/dL (12.0-15.0); Lymphocyte # 2.67 X10^3/ul (4.0); Mean Corpuscular Hgb 30.6 pg (27.0-32.0); Mean Corpuscular Volume 95.7 fL (81-99); Mean Platelet Vol. 8.8 fl (6.2-12.0); Monocyte% 6.8 % (0-10); NRBC Flagged by Analyzer 0 % (0-5); Neutrophil # 15.97 X10^3/uL (2.7-7.7); Platelet Count 439 K/mm3 (150-450); RBC Distribution Width CV 14.7 % (11.6-14.6); RBC Distribution Width SD 51.8 fl (35.1-43.9); Red Blood Count 4.41 M/mm3 (4.2-5.4); White Blood Count 20.5 K/mm3 (4.4-11.0)
[2019-07-14 17:11] LABS: Color, Urine Straw (Yellow); Glucose, Dipstick Normal (Normal); Ketone-Dipstick Negative (Negative); Leukocyte Esterase-Dipstick Negative /ul (Negative); Nitrite-Dipstick Negative (Negative); Occult Blood-Urine Negative /ul (Negative); Protein-Dipstick Negative (Negative); Specific Gravity, Urine 1.015 (1.002-1.030); Urine Bilirubin Dipstick Negative (Negative); Urine Clarity Clear (Clear); Urine Urobilinogen Normal (Normal)
[2019-07-14 17:26] LABS: AST(SGOT) 14 U/L (15-37); Alanine Aminotransfer ALT/SGPT 19 U/L (13-56); Albumin, Serum 3.7 g/dL (3.2-5.0); Alkaline Phosphatase 81 U/L (45-117); Anion Gap 5 (5-15); BUN 17 mg/dL (7-18); BUN/Creat Ratio 26.9 RATIO (10-20); Calcium,Total 9.7 mg/dL (8.5-10.1); Chloride 106 mmol/L (98-107); Creatinine, Serum 0.63 mg/dL (0.55-1.02); EST Glomerular Filtration Rate 98 mL/min (>60); Est Glom Filt Rate - Afr Amer 119 mL/min (>60); Estimated Creatinine Clearance 35.43 ml/min; Globulin 3.8 g/dL (2.2-4.2); Glucose 119 mg/dL (74-106); Lipase 79 U/L (73-393); Protein, Total 7.5 g/dL (6.4-8.2); Sodium Level 140 mmol/L (136-145)
[2019-07-14 17:46] LABS: Squamous Epithelial Cells - UA 0-5 SEEN /hpf (5-10)
[2019-07-14 17:47] LABS: Bacteria 2+ /hpf (None Seen)
[2019-07-14 17:48] LABS: Transitional Epithelial - Ur 0-5 SEEN /hpf (0-5); White Blood Cells 0-5 SEEN /hpf (0-5)
[2019-07-14] MEDS: Morphine 4 MG/ML Syringe IV (18:27)
[2019-07-14] MEDS: MethylPREDNISolone 125 MG/2 ML Vial IV (18:27)
[2019-07-14] MEDS: Ondansetron 4 MG/2 ML Vial IV (18:27)
--- NOTE | 2019-07-14 18:42 | ED.RN ---
Called RT about pending aerosols, not charted in AUG. community health educator RT will investigate.
--- NOTE | 2019-07-14 18:43 | HP.PCM_ITS ---
History of Present Illness Date of Admission: 07/14/19 Chief Complaint: Shortness of breath The patient is a 73 year old F H as below who presents with shortness of breath about a week. She states that she has been using inhalers without any improvement. She has not called her PCP so she has not been on any steroids. She presented today because the shortness of breath got worse. She is supposed to be on oxygen and she had an exercise test where she desaturated in December to 88% on room air and was supposed to be on 2 L nasal cannula however she only wears this intermittently. She also has a history of a PE. She had pulmonary function tests which demonstrated severe large airway disease. She was on her oxygen at home when EMS arrived she said that it was not helping. Chest x-ray was unremarkable did not show any pneumonia. Her urine was also unremarkable and she denies any dysuria. She does have a leukocytosis however she is afebrile therefore we will just continue to monitor. Past Medical History Past Medical History (Chronic Problems): Chronic Problems (Last Reviewed 06/15/19 @ 13:11 by Leidy Pedraza) Asthma (Chronic) Stage 4 very severe COPD by GOLD classification (Chronic) FEV1 30% of predicted History of blood clots (Chronic) COPD (chronic obstructive pulmonary disease) (Chronic) Chronic back pain (Chronic) Scoliosis (Chronic) Arthritis (Chronic) Medical History: Medical History (Last Reviewed 06/15/19 @ 13:11 by Leidy Pedraza) History of blood clots (Chronic) Z86.718 COPD (chronic obstructive pulmonary disease) (Chronic) J44.9 Chronic back pain (Chronic) M54.9, G89.29 Scoliosis (Chronic) M41.9 Arthritis (Chronic) M19.90 Bronchitis J40 Allergies No Known Allergies Allergy (Verified 07/14/19 15:21) Home Medications: Ambulatory Orders Medication Instructions Recorded oxycodone myristate 13.5 mg 13.5 mg PO BID 01/10/19 capsule sprinkle extend release 12hr(DON'T CRUSH) budesonide-formoterol HFA 160 2 puff INHALATION BID #1 device 03/08/19 mcg-4.5 mcg/actuation aerosol inhaler Fluticasone Propionate 2 spray INTRANASAL DAILY 05/16/19 Tiotropium [place] [Spiriva 2 puff INHALATION DAILY 05/16/19 Respimat] mirtazapine 15 mg tablet 15 mg PO QHS #90 tab 06/15/19 tramadol 50 mg tablet 50 mg PO Q12H PRN #14 tab 06/15/19 apixaban 5 mg tablet 5 mg PO BID #180 tab 07/02/19 albuterol sulfate 90 mcg/actuation 2 puff INHALATION Q6H PRN PRN #6.7 07/04/19 aerosol inhaler g Surgical History: Surgical History (Last Reviewed 06/15/19 @ 13:11 by Leidy Pedraza) H/O breast biopsy Z98.890 1972 S/P IVC filter Z95.828 x2 1995 cystectomy right breast, non cancerous 1966 Surgical History: - - s/p right breast biopsy, s/p IVC filter Psychiatric History: No pertinent psych hx [employer] History: No pertinent [employer] history Smoking Status: Former smoker Tobacco Use: Cigarettes Alcohol: None Drugs: None - *Family History Paternal Family History: Family History (Last Reviewed 06/15/19 @ 13:11 by Leidy Pedraza) Mother Arthritis Dementia History Items: Unknown Maternal Family History: Family History (Last Reviewed 06/15/19 @ 13:11 by Leidy Pedraza) Mother Arthritis Dementia History Items: No pertinent history Review of Systems Constitutional: Denies: Chills, Fever, Weight Change HEENT: Denies: Head Aches, Sinus Congestion, Sinus Drainage Cardiovascular: Denies: Chest Pain, Palpitations Respiratory: Reports: Cough, Shortness of Breath. Denies: Shortness of breath at rest, Sputum production Gastrointestinal: Denies: Abdominal Pain, Nausea, Vomiting Genitourinary: Denies: Dysuria Musculoskeletal: Denies: Joint Pain, Joint Tenderness Skin: Denies: Rash, Wounds Neurological: Denies: Numbness, Tingling, Focal weakness Psychiatric: Denies: Anxiety, Depression, Homicidal Ideations, Suicidal Ideations Hematologic/ Lymphatic: Denies: Easy Bruising, Easy Bleeding VTE Information - Inpt Only VTE Present on Admission: No - Physical Exam Vitals/I&O's: Vital Signs Temp Pulse Resp BP Pulse Ox 98.5 F 106 H 13 139/74 H 98 07/14/19 15:21 07/14/19 18:02 07/14/19 18:02 07/14/19 18:02 07/14/19 18:02 Oxygen Flow Rate (L/min) 3 Oxygen Delivery Method Nasal Cannula Weight: 95 lb 14.417 oz Body Mass Index (BMI) 18.1 General: Alert, Oriented x3, Cooperative, No apparent distress HEENT: Atraumatic, PERRLA, EOMI, Normocephalic Oral: Moist Mucosa Neck: Supple, No JVD Lungs: - - No air movement Cardiovascular: Regular Rhythm, Normal S1, Normal S2, No murmurs, Tachycardic Abdomen: Soft, Non Tender, Non-Distended, No Hepato-splenomegaly Extremities: No edema, Capillary Refill Less than 3 Seconds Skin: No rashes, No breakdown Neurological: Neuro grossly intact, Sensory exam intact to light touch and pain Psych/Mental Status: Normal Affect, Appropriate Microbiology Past 72 Hours 07/14/19 16:07 Mucosa - Nose Influenza Types A,B Direct FA (RAI) - Final Laboratory Results 07/14/19 17:00: WBC 20.5 H, RBC 4.41, Hgb 13.5, Hct 42.2, MCV 95.7, MCH 30.6, MCHC 32.0, RDW Std Deviation 51.8 H, RDW Coeff of Bing 14.7 H, Plt Count 439, MPV 8.8, Immature Gran % (Auto) 0.900, Neut % (Auto) 78.0 H, Lymph % (Auto) 13.0 L, [place] % (Auto) 6.8, Eos % (Auto) 0.8, Baso % (Auto) 0.5, Absolute Neuts (auto) 16.0 H, Absolute Lymphs (auto) 2.67, Nucleated RBC % 0 07/14/19 17:00: Sodium 140, Potassium 4.0, Chloride 106, Carbon Dioxide 29.0, Anion Gap 5, BUN 17, Creatinine 0.63, Estim Creat Clear Calc 35.43, Est GFR (MDRD) Af Amer 119, Est GFR (MDRD) Non-Af 98, BUN/Creatinine Ratio 26.9 H, Glucose 119 H, Calcium 9.7, Total Bilirubin 0.10 L, AST 14 L, ALT 19, Alkaline Phosphatase 81, Troponin I < 0.015, Total Protein 7.5, Albumin 3.7, Globulin 3.8, Albumin/Globulin Ratio 1.0, Lipase 79 07/14/19 17:00: Urine Color Straw, Urine Clarity Clear, Urine pH 6.0, Ur Spe cific [place] 1.015, Urine Protein Negative, Urine Glucose (UA) Normal, Urine Ketones Negative, Urine Occult Blood Negative, Urine Nitrite Negative, Urine Bilirubin Negative, Urine Urobilinogen Normal, Ur Leukocyte Esterase Negative, Urine RBC 0 SEEN, Urine WBC 0-5 SEEN, Ur Squamous Epith Cells 0-5 SEEN, Ur Transition Epith Cell 0-5 SEEN, Urine Bacteria 2+, Urine Mucus 0 SEEN Assessment/Plan All Active Problems (Last Reviewed 06/15/19 @ 13:11 by Leidy Pedraza) Acute pulmonary embolism (Acute) Malnutrition (Acute) 1. COPD exacerbation -She is moving no air -Continue with oxygen at 3 L -Inhalers as well as Solu-Medrol 2. History of PE -She does take her Eliquis -We will continue DVT: Eliquis Code Visit Inpatient E&M: 71092 Init Hosp L2
[2019-07-14] MEDS: Albuterol 2.5 MG/3 ML VIAL.NEB. INHALATION ×2 (19:29)
[2019-07-14] MEDS: Mirtazapine 15 MG Tablet PO (21:28)
[2019-07-14] MEDS: oxyCODONE CR 15 MG Tablet PO (21:28)
[2019-07-14] MEDS: APIXABAN 5 MG TABLET PO (21:29)
[2019-07-15] VITALS (9 sets, daily range): BP systolic 129–155; BP diastolic 74–82; PULSE 79–107; RESP 16–22; TEMP 35.8–36.8; O2SAT 92–100
[2019-07-15 05:39] LABS: Absolute Neutrophil Count 10.4 X10^3/uL (2.0-7.7); Basophil# 0.02 X10^3/uL; Basophil% 0.2 % (0-1); Hematocrit 37.6 % (37-47); Lymphocyte % 7.8 % (19-41); Mean Corp Hgb Conc 31.9 g/dL (32-36); Mean Corpuscular Hgb 30.2 pg (27.0-32.0); Mean Corpuscular Volume 94.5 fL (81-99); Mean Platelet Vol. 8.9 fl (6.2-12.0); Monocyte# 0.21 X10^3/uL; Monocyte% 1.8 % (0-10); NRBC Flagged by Analyzer 0 % (0-5); Neutrophil # 10.36 X10^3/uL (2.7-7.7); Neutrophil % 89.3 % (47-70); Platelet Count 340 K/mm3 (150-450); RBC Distribution Width CV 14.8 % (11.6-14.6); RBC Distribution Width SD 51.8 fl (35.1-43.9); Red Blood Count 3.98 M/mm3 (4.2-5.4); White Blood Count 11.6 K/mm3 (4.4-11.0)
[2019-07-15 06:01] LABS: Anion Gap 4 (5-15); BUN 16 mg/dL (7-18); Calcium,Total 9.2 mg/dL (8.5-10.1); Chloride 104 mmol/L (98-107); Creatinine, Serum 0.48 mg/dL (0.55-1.02); EST Glomerular Filtration Rate 134 mL/min (>60); Est Glom Filt Rate - Afr Amer 162 mL/min (>60); Estimated Creatinine Clearance 33.56 ml/min; Glucose 121 mg/dL (74-106); Potassium 4.2 mmol/L (3.5-5.1); Sodium Level 140 mmol/L (136-145)
[2019-07-15] MEDS: 0.9% Saline Lock 10 ML Syringe IV ×3 (06:17→21:26)
[2019-07-15] MEDS: Ipratropium/Albuterol Sulfate 3 ML AMPUL.NEB INHALATION ×4 (06:56→18:45)
--- NOTE | 2019-07-15 09:20 | PN_ITS ---
Subjective: Feeling better, breathing better. No issues overnight Vitals/I&O's: Vital Signs Temp Pulse Resp BP Pulse Ox 98 F 93 20 H 154/74 H 100 07/15/19 07:56 07/15/19 07:56 07/15/19 07:56 07/15/19 07:56 07/15/19 07:56 Oxygen Flow Rate (L/min) 2 Oxygen Delivery Method Room Air Weight: 90 lb 13.287 oz Body Mass Index (BMI) 17.1 Intake and Output for Last 24 Hours 07/13/19 07/14/19 07/15/19 23:59 23:59 23:59 Intake Total 300 / 300 Balance 300 / 300 General: Alert, Oriented x3, Cooperative, No apparent distress HEENT: Atraumatic, PERRLA, EOMI, Normocephalic Oral: Moist Mucosa Neck: Supple, No JVD Lungs: Still with poor air movement however she does have now some wheezing and mild rhonchi Cardiovascular: Regular rate and rhythm, Normal S1, Normal S2, No murmurs Abdomen: Soft, Non Tender, Non-Distended, No Hepato-splenomegaly Extremities: No edema, Capillary Refill Less than 3 Seconds Skin: No rashes, No breakdown Neurological: Neuro grossly intact, Sensory exam intact to light touch and pain Psych/Mental Status: Normal Affect, Appropriate Microbiology Past 72 Hours 07/14/19 16:07 Mucosa - Nose Influenza Types A,B Direct FA (RAI) - Final Laboratory Results 07/14/19 17:00: WBC 20.5 H, RBC 4.41, Hgb 13.5, Hct 42.2, MCV 95.7, MCH 30.6, MCHC 32.0, RDW Std Deviation 51.8 H, RDW Coeff of Bing 14.7 H, Plt Count 439, MPV 8.8, Immature Gran % (Auto) 0.900, Neut % (Auto) 78.0 H, Lymph % (Auto) 13.0 L, [place] % (Auto) 6.8, Eos % (Auto) 0.8, Baso % (Auto) 0.5, Absolute Neuts (auto) 16.0 H, Absolute Lymphs (auto) 2.67, Nucleated RBC % 0 07/14/19 17:00: Sodium 140, Potassium 4.0, Chloride 106, Carbon Dioxide 29.0, Anion Gap 5, BUN 17, Creatinine 0.63, Estim Creat Clear Calc 35.43, Est GFR (MDRD) Af Amer 119, Est GFR (MDRD) Non-Af 98, BUN/Creatinine Ratio 26.9 H, Glucose 119 H, Calcium 9.7, Total Bilirubin 0.10 L, AST 14 L, ALT 19, Alkaline Phosphatase 81, Troponin I < 0.015, Total Protein 7.5, Albumin 3.7, Globulin 3.8, Albumin/Globulin Ratio 1.0, Lipase 79 07/14/19 17:00: Urine Color Straw, Urine Clarity Clear, Urine pH 6.0, Ur Specific [place] 1.015, Urine Protein Negative, Urine Glucose (UA) Normal, Urine Ketones Negative, Urine Occult Blood Negative, Urine Nitrite Negative, Urine Bilirubin Negative, Urine Urobilinogen Normal, Ur Leukocyte Esterase Negative, Urine RBC 0 SEEN, Urine WBC 0-5 SEEN, Ur Squamous Epith Cells 0-5 SEEN, Ur Transition Epith Cell 0-5 SEEN, Urine Bacteria 2+, Urine Mucus 0 SEEN 07/15/19 05:14: WBC 11.6 H, RBC 3.98 L, Hgb 12.0, Hct 37.6, MCV 94.5, MCH 30.2, MCHC 31.9 L, RDW Std Deviation 51.8 H, RDW Coeff of Bing 14.8 H, Plt Count 340, MPV 8.9, Immature Gran % (Auto) 0.900, Neut % (Auto) 89.3 H, Lymph % (Auto) 7.8 L, [place] % (Auto) 1.8, Eos % (Auto) 0.0, Baso % (Auto) 0.2, Absolute Neuts (auto) 10.4 H, Absolute Lymphs (auto) 0.90, Nucleated RBC % 0 07/15/19 05:14: Sodium 140, Potassium 4.2, Chloride 104, Carbon Dioxide 32.0, Anion Gap 4 L, BUN 16, Creatinine 0.48 L, Estim Creat Clear Calc 33.56, Est GFR (MDRD) Af Amer 162, Est GFR (MDRD) Non-Af 134, BUN/Creatinine Ratio 33.0 H, Glucose 121 H, Calcium 9.2 Current Medications Acetaminophen (Tylenol) 650 mg PO Q6H PRN PRN PRN Reason: Pain Score 1-10/Temp > 100.7 F Albuterol/Ipratropium (Duoneb) 3 ml INHALATION Q4HWA.RT [facility] Last Admin: 07/15/19 06:56 Dose: 3 ml Documented by: Apixaban (Eliquis) 5 mg PO BID [facility] Last Admin: 07/14/19 21:29 Dose: 5 mg Documented by: Fluticasone Propionate (Flonase Nasal [place]) 2 spray NASAL DAILY [facility] Sodium Chloride () 250 mls @ 15 mls/hr IV .[id number] PRN PRN Reason: Saline Flush Sodium Chloride () 250 mls @ 15 mls/hr IV .[id number] PRN PRN Reason: Additional IVPB Infusion Melatonin (Melatonin) 3 mg PO QHS PRN PRN PRN Reason: INSOMNIA Methylprednisolone (Solu-Medrol) 40 mg IV Q8 [facility] Last Admin: 07/15/19 06:17 Dose: 40 mg Documented by: Mirtazapine (Remeron) 15 mg PO QHS [facility] Last Admin: 07/14/19 21:28 Dose: 15 mg Documented by: Ondansetron HCl (Zofran) 4 mg IV Q8H PRN PRN PRN Reason: NAUSEA/VOMITING Oxycodone HCl (Oxycontin) 15 mg PO BID [facility] Last Admin: 07/14/19 21:28 Dose: 15 mg Documented by: Sodium Chloride () 10 - 40 ml IV UD PRN PRN Reason: SALINE FLUSH Last Admin: 07/15/19 06:17 Dose: 10 ml Documented by: Tramadol HCl (Ultram) 50 mg PO Q12H PRN PRN PRN Reason: Pain Score 1-10/10 STROKE Vital Signs/Narrative: Vital Signs Temp Pulse Resp BP Pulse Ox 07/15/19 07:56 98 F 93 20 H 154/74 H 100 07/15/19 06:56 79 18 98 Medical Necessity - Tobacco Use Smoking Status: Former smoker Tobacco Use: Cigarettes Assessment/Plan All Active Problems (Last Reviewed 06/15/19 @ 13:11 by Leidy Pedraza) Acute pulmonary embolism (Acute) Malnutrition (Acute) 1. COPD exacerbation -She started moving some air, and she has wheezing on exam -Continue with oxygen at 3 L -Inhalers as well as Solu-Medrol 2. History of PE -She does take her Eliquis -We will continue DVT: Eliquis Code Visit Inpatient E&M: 62724 Subs Hosp L2
[2019-07-15] MEDS: APIXABAN 5 MG TABLET PO ×2 (09:32→21:27)
[2019-07-15] MEDS: Fluticasone 0.05% 1 SPRAY NASAL.SRY 2 SPRAY NASAL (09:32)
[2019-07-15] MEDS: oxyCODONE CR 15 MG Tablet PO ×2 (09:34→21:26)
[2019-07-15] MEDS: Mirtazapine 15 MG Tablet PO (21:27)
[2019-07-16 02:18] VITALS: BP 139/74; PULSE 81; RESP 18; TEMP 36.5; O2SAT 99
[2019-07-16] MEDS: 0.9% Saline Lock 10 ML Syringe IV ×2 (05:49→13:46)
[2019-07-16 06:39] VITALS: PULSE 79; RESP 18; O2SAT 99
[2019-07-16] MEDS: Ipratropium/Albuterol Sulfate 3 ML AMPUL.NEB INHALATION ×2 (06:39→10:15)
[2019-07-16 09:00] VITALS: BP 151/86; PULSE 64; RESP 18; TEMP 36.9; O2SAT 95
--- NOTE | 2019-07-16 09:30 | PCM.DC ---
You will use the following diet at home:: Regular Your food should be the consistency of: Regular Your liquids should be the consistency of: Regular/Thin Discharge Activity: Return to Normal Activity Call your doctor if you observe: Fever of 101 or Higher, Shortness of breath, Dizziness, Fainting spells, Swelling in the ankles, Chest pain, Increased palpitations (irregular heartbeat) Allergies/Adverse Reactions: Allergies No Known Allergies Allergy (Verified 07/14/19 15:21) Medications to take at Discharge oxycodone myristate 13.5 mg capsule sprinkle extend release 12hr(DON'T CRUSH) 13.5 mg PO BID 01/10/19 budesonide-formoterol HFA 160 mcg-4.5 mcg/actuation aerosol inhaler 2 puff INHALATION BID #1 device 03/08/19 Fluticasone Propionate 2 spray INTRANASAL DAILY 05/16/19 Tiotropium [place] [Spiriva Respimat] 2 puff INHALATION DAILY 05/16/19 mirtazapine 15 mg tablet 15 mg PO QHS #90 tab 06/15/19 apixaban 5 mg tablet 5 mg PO BID #180 tab 07/02/19 Albuterol Sulfate [Proventil Hfa] 2 puff INHALATION Q6H PRN PRN #6.7 g 07/16/19 Prednisone [Deltasone] 40 mg PO DAILY #14 tab 07/16/19 The following prescriptions were given: Prednisone [Deltasone] 40 mg PO DAILY #14 tab Transmission Status: Pending to [facility] Albuterol Sulfate [Proventil Hfa] 2 puff INHALATION Q6H PRN PRN #6.7 g PRN Reason: Sob &/Or Wheezing Transmission Status: Pending to [facility] Primary Care Physician: Mary Flannery MD [Primary Care Provider] - Please follow up with your Primary Care Physician in: 3-5 days Test Results: Test results from this visit will be discussed in further detail at your follow-up appointment, if applicable. Please Follow Up With: Merrill Davalos DO When: 2-4 weeks
[2019-07-16] MEDS: Fluticasone 0.05% 1 SPRAY NASAL.SRY 2 SPRAY NASAL (09:46)
[2019-07-16] MEDS: APIXABAN 5 MG TABLET PO (09:46)
[2019-07-16] MEDS: oxyCODONE CR 15 MG Tablet PO (09:48)
--- NOTE | 2019-07-16 09:50 | PCM.DC.SUM ---
Discharge Date and Diagnosis Date of Admission: 07/14/19 Date of Discharge: 07/16/19 - Secondary Discharge Diagnosis Chronic Problems (Last Reviewed 06/15/19 @ 13:11 by Leidy Pedraza) Asthma (Chronic) Stage 4 very severe COPD by GOLD classification (Chronic) FEV1 30% of predicted History of blood clots (Chronic) COPD (chronic obstructive pulmonary disease) (Chronic) Chronic back pain (Chronic) Scoliosis (Chronic) Arthritis (Chronic) Hospital Course and Treatment Imaging Results: CXR: IMPRESSION: No active disease. Consults: None Operations: None Procedures: None Summary of Care Provided: Per HPI: The patient is a 73 year old F PMH as below who presents with shortness of breath about a week. She states that she has been using inhalers without any improvement. She has not called her PCP so she has not been on any steroids. She presented today because the shortness of breath got worse. She is supposed to be on oxygen and she had an exercise test where she desaturated in December to 88% on room air and was supposed to be on 2 L nasal cannula however she only wears this intermittently. She also has a history of a PE. She had pulmonary function tests which demonstrated severe large airway disease. She was on her oxygen at home when EMS arrived she said that it was not helping. Chest x-ray was unremarkable did not show any pneumonia. Her urine was also unremarkable and she denies any dysuria. She does have a leukocytosis however she is afebrile therefore we will just continue to monitor. Hospital Course: 1. 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 She also has severe largely irreversible disease on PFTs. She presented with shortness of breath and needing to wear her oxygen continuously at home. Initially on admission she had 0 air movement however with inhalers and steroids she started opening up and was feeling much better and you could hear some wheezes and rhonchi. She is asking to go home today, I explained to her the risks and benefits of discharge and she expressed understanding. 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 2. Her other medical diagnoses were evaluated and her home medications were continued where appropriate - Physical Exam Vitals/I&O's: Vital Signs Temp Pulse Resp BP Pulse Ox 98.5 F 64 18 151/86 H 95 07/16/19 09:00 07/16/19 09:00 07/16/19 09:00 07/16/19 09:00 07/16/19 09:00 Oxygen Flow Rate (L/min) 2 Oxygen Delivery Method Nasal Cannula Weight: 90 lb 13.287 oz Body Mass Index (BMI) 17.1 Intake and Output for Last 24 Hours 07/14/19 07/15/19 07/16/19 23:59 23:59 23:59 Intake Total 880 / 1080 200 / 200 Balance 880 / 1080 200 / 200 General: Alert, Oriented x3, Cooperative, No apparent distress HEENT: Atraumatic, PERRLA, EOMI, Normocephalic Oral: Moist Mucosa Neck: Supple, No JVD Lungs: Still with poor air movement however she does have now some wheezing and mild rhonchi Cardiovascular: Regular rate and rhythm, Normal S1, Normal S2, No murmurs Abdomen: Soft, Non Tender, Non-Distended, No Hepato-splenomegaly Extremities: No edema, Capillary Refill Less than 3 Seconds Skin: No rashes, No breakdown Neurological: Neuro grossly intact, Sensory exam intact to light touch and pain Psych/Mental Status: Normal Affect, Appropriate Microbiology Past 72 Hours 07/14/19 16:07 Mucosa - Nose Influenza Types A,B Direct FA (RAI) - Final Current Medications Acetaminophen (Tylenol) 650 mg PO Q6H PRN PRN PRN Reason: Pain Score 1-10/Temp > 100.7 F Albuterol/Ipratropium (Duoneb) 3 ml INHALATION Q4HWA.RT [facility] Last Admin: 07/16/19 06:39 Dose: 3 ml Documented by: Apixaban (Eliquis) 5 mg PO BID [facility] Last Admin: 07/16/19 09:46 Dose: 5 mg Documented by: Fluticasone Propionate (Flonase Nasal [place]) 2 spray NASAL DAILY [facility] Last Admin: 07/16/19 09:46 Dose: 2 spray Documented by: Sodium Chloride () 250 mls @ 15 mls/hr IV .[id number] PRN PRN Reason: Saline Flush Sodium Chloride () 250 mls @ 15 mls/hr IV .[id number] PRN PRN Reason: Additional IVPB Infusion Melatonin (Melatonin) 3 mg PO QHS PRN PRN PRN Reason: INSOMNIA Methylprednisolone (Solu-Medrol) 40 mg IV Q8 [facility] Last Admin: 07/16/19 05:49 Dose: 40 mg Documented by: Mirtazapine (Remeron) 15 mg PO QHS [facility] Last Admin: 07/15/19 21:27 Dose: 15 mg Documented by: Ondansetron HCl (Zofran) 4 mg IV Q8H PRN PRN PRN Reason: NAUSEA/VOMITING Oxycodone HCl (Oxycontin) 15 mg PO BID [facility] Last Admin: 07/16/19 09:48 Dose: 15 mg Documented by: Sodium Chloride () 10 - 40 ml IV UD PRN PRN Reason: SALINE FLUSH Last Admin: 07/16/19 05:49 Dose: 10 ml Documented by: Tramadol HCl (Ultram) 50 mg PO Q12H PRN PRN PRN Reason: Pain Score 1-10/10 Discharge Activity: Return to Normal Activity Call your doctor if you observe: Fever of 101 or Higher, Shortness of breath, Dizziness, Fainting spells, Swelling in the ankles, Chest pain, Increased palpitations (irregular heartbeat) Home Medications: Medications to take at Discharge oxycodone myristate 13.5 mg capsule sprinkle extend release 12hr(DON'T CRUSH) 13.5 mg PO BID 01/10/19 budesonide-formoterol HFA 160 mcg-4.5 mcg/actuation aerosol inhaler 2 puff INHALATION BID #1 device 03/08/19 Fluticasone Propionate 2 spray INTRANASAL DAILY 05/16/19 Tiotropium [place] [Spiriva Respimat] 2 puff INHALATION DAILY 05/16/19 mirtazapine 15 mg tablet 15 mg PO QHS #90 tab 06/15/19 apixaban 5 mg tablet 5 mg PO BID #180 tab 07/02/19 Albuterol Sulfate [Proventil Hfa] 2 puff INHALATION Q6H PRN PRN #6.7 g 07/16/19 Prednisone [Deltasone] 40 mg PO DAILY #14 tab 07/16/19 Following Prescrptions Were Given to Patient: Prednisone [Deltasone] 40 mg PO DAILY #14 tab Transmission Status: Received by [facility] Albuterol Sulfate [Proventil Hfa] 2 puff INHALATION Q6H PRN PRN #6.7 g PRN Reason: Sob &/Or Wheezing Transmission Status: Received by [facility] Primary Care Physician: Mary Flannery MD [Primary Care Provider] - Please follow up with your Primary Care Physician in: 3-5 days Please Follow Up With: Merrill Davalos DO When: 2-4 weeks Disposition: Home Minutes spent on discharge:: 35 Patient Condition:: Stable Medical Necessity - Tobacco Use Smoking Status: Former smoker Tobacco Use: Cigarettes Meaningful Use Info Meaningful Use Diagnoses (Choose all that apply): None applicable Code Visit Inpatient E&M: 54872 Disch Hosp
[2019-07-16 10:15] VITALS: PULSE 101; RESP 18
--- NOTE | 2019-07-16 10:29 | CASEMGMT ---
LW[facility]PO[facility], Sherry Randle is listed as pt's medical POA. MAHI Lehman
--- NOTE | 2019-07-16 11:06 | CASEMGMT ---
RN CM Face to Face with patient for initial transition planning/care coordination assessment. RN CM introduced self and role at [facility]. Patient lying in bed, alert and oriented. Patient willing to participate in assessment and is able to answer all questions appropriately. Care providers, pharmacy, and demographics verified. Patient wishes to discharge home, denies need for home health at this time. Patient states she has no further needs or concerns at this time. CM to follow for discharge planning needs that may arise. PCP: Alma Delia Specialists: Ed, pain management; Anoop, pulmonology [facility]acy[facility] Insurance: [employer] Prescription Benefit: yes Living Will/HPOA: yes, son Preston Randle LNOK: son Living Arrangements: Patient lives alone in mobile home with 3 steps and railing to enter the home. Patient is independent at home. Transportation: son, daughter in law DME/HHC: Patient has walker, shower chair, BSC, nebulizer, oxygen 2lpm through [employer] with portability. Patient denies previous HHC. Disposition Plan: Patient to discharge home with family support and follow-up plans in place. Diana KAUFFMANN, RN, CM
[2019-07-16 13:54] VITALS: BP 145/80; PULSE 78; RESP 18; TEMP 36.6; O2SAT 96
--- NOTE | 2019-07-17 13:17 | CASEMGMT ---
Case Management DC F/u Call: DC Date: 07/16/2019 DC Diagnosis: None. Hospital Course: 1. COPD exacerbation DC Disposition: Home Lace/Strata: 04/08 Called patient cell phone, first number listed in demographics ended after 2 rings and second cell phone patient answered and confirmed both phones are active and her and the first one this job specification writer called- acted up when I called and hung up. Patient states that she is doing better than what she was doing and confirmed picked up her DC medications. Denies any issues/concerns/or questions with [facility], Meds, or F/u- states has that all taken care of. Thanked patient for choosing [facility] for her care and ended conversation. Dominick Reyes RNCM
== END 2019-07-16 14:00 | disposition home or self-care (01) | DRG 192 ==
LOC: ED 16:32 → MS3 18:45
PROVIDERS: Admitting Provider Family Medicine; Emergency Provider Emergency Medicine; PCP Internal Medicine; Visit Provider Family Medicine
DX: J44.1 Chronic obstructive pulmonary disease with (acute) exacerbation (principal); M41.9 Scoliosis, unspecified; M19.90 Unspecified osteoarthritis, unspecified site; G89.29 Other chronic pain; Z86.711 Personal history of pulmonary embolism; Z79.01 Long term (current) use of anticoagulants; Z99.81 Dependence on supplemental oxygen; Z87.891 Personal history of nicotine dependence
CPT/HCPCS: 36415; 71045; 80048; 80053; 81001; 83690; 84484; 85025; 87804; 93005; 94640; 99285; J7030; A4216; J2405